=== PATIENT | female | born 1995 | race American Indian/Alaskan Native ===

== ENCOUNTER 2018-08-10 06:48 | Day surgery (SDC) | payer OTHER ==
[2018-08-10] MEDS ORDERED: LACTATED RINGERS 1,000 ML IV SCH (07:00)
--- NOTE | 2018-08-10 07:44 | Anesthesia Day of Surgery ---
Anesthesia Day of Surgery - Day of Surgery Patient Examined: Yes Patient H&P Reviewed: Yes Patient is NPO: Yes Beta Blockers: No (n/a) Cardiac Clearance: No (n/a) Pulmonary Clearance: No (n/a)
--- NOTE | 2018-08-10 07:44 | Anesthesia Consultation ---
Anesthesia Consult and Med Hx Date of service: 08/10/18 - Airway Anesthetic Teeth Evaluation: Good ROM Head & Neck: Adequate Mental/Hyoid Distance: Adequate Mallampati Class: Class I Intubation Access Assessment: Probably Good - Pulmonary Exam CTA: Yes - Cardiac Exam Cardiac Exam: RRR - Pre-Operative Health Status ASA Pre-Surgery Classification: ASA1 Proposed Anesthetic Plan: General - Pulmonary Hx Smoking: No Hx Respiratory Symptoms: No Hx Sleep Apnea: No - Cardiovascular System Hx Hypertension: No Hx Heart Attack/AMI: No Hx Cardia Arrhythmia: No (h/o palpitations; stress test 2 weeks ago, normal per patient) Hx Peripheral Vascular Disease: No - Central Nervous System Hx Neuromuscular Disorder: No Hx Psychiatric Problems: No - Gastrointestinal Hx Gastroesophageal Reflux Disease: No - Endocrine Hx Renal Disease: No Hx Liver Disease: No Hx Insulin Dependent Diabetes: No Hx Non-Insulin Dependent Diabetes: No - Hematic Hx Sickle Cell Disease: No - Other Systems Hx Alcohol Use: Yes (Occas) Hx Cancer: No - Additional Comments Anesthesia Medical History Comments: no previous surgeries, no FHAC
[2018-08-10] MEDS ORDERED: MONSEL'S TP ONE (08:49)
[2018-08-10] MEDS ORDERED: XYLOCAINE 1% 20 mL ONE (08:49)
[2018-08-10] MEDS ORDERED: LUGOL'S SOLUTION 5% TP ONE ×2 (08:50→09:37)
[2018-08-10] MEDS ORDERED: SILVER NITRATE TP ONE (08:50)
[2018-08-10] MEDS ORDERED: DIPRIVAN 10 MG/ML IV ONE (08:56)
[2018-08-10] MEDS ORDERED: DILAUDID ONE (08:56)
[2018-08-10] MEDS ORDERED: XYLOCAINE MPF 2% ONE (08:56)
[2018-08-10] MEDS ORDERED: VERSED ONE (09:00)
[2018-08-10] MEDS ORDERED: DILAUDID IV PRN (09:17)
[2018-08-10] MEDS ORDERED: NACL 0.9% IR ONE (09:37)
[2018-08-10] MEDS ORDERED: ZOFRAN ONE (09:57)
[2018-08-10] MEDS ORDERED: TORADOL ONE (10:09)
--- NOTE | 2018-08-10 10:38 | Operative Report ---
Operative Report Operative Report: DATE OF OPERATION: 08/10/18 PREOP DIAGNOSIS 1. SARAH III - Severe cervical dysplasia POSTOP DIAGNOSIS 1. SARAH III - Severe cervical dysplasia PROCEDURE: 1. Loop electro-excisional procedure (LEEP) 2. Endocervical curettage Surgeon: Dr. Whit Teague ANESTHESIA General FINDINGS 1. Hypopigmentation of cervical epithelium after staining with Lugol's staining. Specimens removed 1. Cervical biopsy 2. ECC- endocervical curetting IVF UOP 200ml clear EBL 25ml INDICATION: The patient is a 23yo that presents for scheduled LEEP due to SARAH III, severe cervical dysplasia. The risks including but not limited to bleeding, infection, injury to surrounding organs including bladder and bowel, shortened cervix which can result in cervical incompetence and the need for cerclage in future pregnancies were discussed. Benefits, and alternatives of the procedure were discussed in detail and patient expressed understanding, her questions were answered, and she gave informed consent. PROCEDURE: The patient was taken to the OR S3 in stable condition. She was placed in a dorsal supine position and adequateanesthesia was achieved. She wore SCDs for DVT prophylaxis. She was placed in the dorso-lithotomy position, prepped and draped in a sterile fashion and the timeout was done. A coated Grave's speculum was placed per vaginal. Lugol's solution was applied to the cervix. The transition zone and hypopigmented area of cervical epithelium were visible. The loop wire was passed through cervical tissue and cervical biopsy obtained. The specimen was sent to pathology. The base of the cervix was cauterized using monopoer cautery. Monsel's solution was applied to the cervical bed. Hemostasis was achieved. The speculum was removed from the vagina. All counts were correct 2. The patient tolerated the procedure well. She was awakened from the anesthesia and taken to the recovery room in stable condition.
[2018-08-10 12:53] VITALS: BP 121/75
--- NOTE | 2018-08-10 15:05 | Post Anesthesia Evaluation ---
- Post Anesthesia Evaluation Patient Participated: Yes Airway Patent: Yes Stable Respiratory Function: Yes Nausea/Vomiting: No Temp > 96.8F: Yes Pain Manageable: Yes Adequeate Hydration: Yes Anesthesia Complications: No
== END 2018-08-10 12:15 | disposition home or self-care (01) ==
LOC: OR 06:48
PROVIDERS: ATTEND Obstetrics & Gynecology
DX: D06.0 Carcinoma in situ of endocervix (principal); G43.909 Migraine, unspecified, not intractable, without status migrainosus; Z72.89 Other problems related to lifestyle; Z98.890 Other specified postprocedural states
CPT/HCPCS: 57522; 81025; 88305; 88307; 88341; 88342; J1170; J1885; J2250; J2405; J2704; J7120

== ENCOUNTER 2019-12-20 15:35 | Emergency (ER) | payer BC ==
[2019-12-20 15:49] VITALS: BP 111/71
--- NOTE | 2019-12-20 17:01 | Emergency Department Report ---
ED Shortness of Breath HPI - General Chief Complaint: Dyspnea/Respdistress Stated Complaint: CHEST TIGHT Time Seen by Provider: 12/20/19 16:56 Source: patient Mode of arrival: Wheelchair Limitations: Language Barrier - History of Present Illness Initial Comments: Patient is a 24-year-old female that presents emergency room with multiple complaints. Patient states that she is having shortness of breath and chest tightness for 2 days. Patient states that actually started 3 weeks ago. Patient states that her chest tightness and shortness of breath are intermittent. Patient states she went to [facility] and they told her that her symptoms were because of low potassium. Patient states that her primary care told her it was anxiety. Patient states she had a cover test on 12/16/2019 and the results were negative. Patient states she is having intermittent headache. Patient states she has diarrhea as well. Patient states that her diarrhea is typically 1 time in a 24-hour period and is related to her anxiety. Patient states that she wants to make sure that this is all related to her anxiety that is not being controlled by her psychiatrist. Patient states the chest pain is a 2 out of 10. Patient states it is in her entire chest. P atient states that her chest pain is better with relaxation techniques, rest. Patient states that her chest pain is worse with movement and palpation and stressing out. Patient states that her shortness of breath is better with rest and worse with exertion and anxiety. Patient denies fever and chills. Patient denies nausea vomiting. Patient states her primary care and psychiatrist gave her Zoloft and she has not started it because she is afraid of the possible side effects she read online. Patient denies recent travel. Patient denies recent international travel. Patient denies exposure to the novel coronavirus. Patient denies sick contacts. Patient denies fever and chills. Patient denies cough. Patient denies coming in contact with anybody with symptoms of the novel coronavirus. MD Complaint: shortness of breath, chest pain, anxiety -: Sudden - Related Data Previous Rx's Medication Instructions Recorded Last Taken Type Butalb/Acetaminophen/Caffeine 1 cap PO Q8HR PRN #10 cap 12/13/19 Unknown Rx [Fioricet 50-300-40 mg CAP] Hyoscyamine Subl [Levsin Sl 0.125 0.125 mg SL Q6HR PRN #7 tab 12/13/19 Unknown Rx TAB] Ibuprofen [Motrin 800 MG tab] 800 mg PO Q8HR PRN #30 tablet 12/20/19 Unknown Rx Ondansetron [Zofran ODT TAB] 4 mg PO Q6HR PRN #15 tab.rapdis 12/20/19 Unknown Rx Allergies Allergy/AdvReac Type Severity Reaction Status Date / Time No Known Allergies Allergy Verified 12/13/19 15:05 ED Review of Systems ROS: Stated complaint: CHEST TIGHT Other details as noted in HPI ED Past Medical Hx - Past Medical History Previous Medical History?: Yes Hx Hypertension: No Hx Heart Attack/AMI: No Hx Liver Disease: No Hx Renal Disease: No Hx Sickle Cell Disease: No Hx Headaches / Migraines: Yes (Migraines) Hx Psychiatric Treatment: Yes (anxiety) - Surgical History Past Surgical History?: Yes Additional Surgical History: CERVICAL - Social History Smoking Status: Never Smoker Substance Use Type: None - Medications Home Medications: Home Medications Medication Instructions Recorded Confirmed Last Taken Type Butalb/Acetaminophen/Caffeine 1 cap PO Q8HR PRN #10 cap 12/13/19 Unknown Rx [Fioricet 50-300-40 mg CAP] Hyoscyamine Subl [Levsin Sl 0.125 0.125 mg SL Q6HR PRN #7 tab 12/13/19 Unknown Rx TAB] Ibuprofen [Motrin 800 MG tab] 800 mg PO Q8HR PRN #30 tablet 12/20/19 Unknown Rx Ondansetron [Zofran ODT TAB] 4 mg PO Q6HR PRN #15 tab.rapdis 12/20/19 Unknown Rx ED Physical Exam - General Limitations: Language Barrier General appearance: alert, in no apparent distress - Head Head exam: Present: atraumatic, normocephalic - Eye Eye exam: Present: normal appearance - ENT ENT exam: Present: mucous membranes moist - Neck Neck exam: Present: normal inspection - Respiratory Respiratory exam: Present: normal lung sounds bilaterally, chest wall tenderness. Absent: respiratory distress, wheezes, rales, rhonchi, accessory muscle use, decreased breath sounds, prolonged expiratory - Cardiovascular Cardiovascular Exam: Present: regular rate, normal rhythm. Absent: systolic murmur, diastolic murmur, rubs, gallop - GI/Abdominal GI/Abdominal exam: Present: soft, normal bowel sounds. Absent: distended, tenderness - Extremities Exam Extremities exam: Present: normal inspection - Back Exam Back exam: Present: normal inspection - Neurological Exam Neurological exam: Present: alert, oriented X3 - Psychiatric Psychiatric exam: Present: anxious - Skin Skin exam: Present: warm, dry, intact, normal color. Absent: rash ED Course Vital Signs 12/20/19 12/20/19 15:48 20:06 Temperature 98.2 F Pulse Rate 106 H 84 Respiratory 20 16 Rate Blood Pressure 111/71 O2 Sat by Pulse 98 100 Oximetry - Reevaluation(s) Reevaluation #1: I discussed all results and clinical findings with patient. I discussed plan of care with patient. Patient agrees with plan of care. Patient is stable for discharge. Patient will be discharged home. Patient given discharge i nstructions. Patient voiced understanding of discharge instructions. 12/20/19 19:14 ED Medical Decision Making - Lab Data Result diagrams: 12/20/19 16:08 12/20/19 16:08 - EKG Data -: EKG Interpreted by Hi EKG shows normal: sinus rhythm, axis, intervals, QRS complexes, ST-T waves Rate: normal - Radiology Data Radiology results: report reviewed, image reviewed CHEST 2 VIEWS INDICATION / CLINICAL INFORMATION: chest tightness, SOB. COMPARISON: None available. FINDINGS: SUPPORT DEVICES: None. HEART / MEDIASTINUM: No significant abnormality. LUNGS / PLEURA: No significant pulmonary or pleural abnormality. No pneumothorax. ADDITIONAL FINDINGS: No significant additional findings. IMPRESSION: 1. Normal chest radiograph. - Medical Decision Making Patient is a 24-year-old female that presents emergency room with complaints of difficulty breathing, chest tightness, diarrhea. Patient's clinical findings are consistent with anxiety and stress reaction. Patient has been evaluated multiple times by her primary care, by [facility] and this ER and all of her work-up has been negative. Patient has had the symptoms for 2 to 4 weeks but this time around started 2 days ago. Patient states 4 days ago she was evaluated in the ER and everything was note negative except for low potassium. Patient had a negative COVID screen on 12/16/2019. Patient had a cardiac work-up here to include labs, EKG and chest x-ray. Patient's labs were unremarkable. Patient chest x-ray was negative for acute findings. Patient's EKG shows a sinus rhythm is completely normal. Patient is stable for discharge. I spent adequate time with the patient explaining her diagnosis and treatment use. I also explained to the patient the importance of follow-up with a psychiatrist and a primary care for further evaluation treatment. I encouraged the patient to take the Zoloft her primary care has prescribed for her. - Differential Diagnosis Anxiety, chest pain, shortness of breath, diarrhea, stress reaction Critical care attestation.: If time is entered above; I have spent that time in minutes in the direct care of this critically ill patient, excluding procedure time. ED Disposition Clinical Impression: SOB (shortness of breath), Anxiety, Stress reaction Diarrhea Qualifiers: Diarrhea type: unspecified type Qualified Code(s): R19.7 - Diarrhea, unspecified Chest pain Qualifiers: Chest pain type: unspecified Qualified Code(s): R07.9 - Chest pain, unspecified Disposition: TO HOME OR SELFCARE Is pt being admited?: No Does the pt Need Aspirin: No Condition: Stable Instructions: Chest Pain (ED), Costochondritis (ED), Stress (ED), Anxiety (ED) Additional Instructions: Patient to follow-up with primary care in 2 to 3 days. Patient to follow-up w [facility] in 2 to 3 days. Patient to rest. Patient to increase water. Patient to take Tylenol or ibuprofen as needed for pain. Patient to take meds as directed. Patient to return to the ER if condition worsens, changes or new symptoms arise. Prescriptions: Ibuprofen [Motrin 800 MG tab] 800 mg PO Q8HR PRN #30 tablet PRN Reason: pain Ondansetron [Zofran ODT TAB] 4 mg PO Q6HR PRN #15 tab.rapdis PRN Reason: Nausea And Vomiting Referrals: PRIMARY CAREMD [Primary Care Provider] - 2-3 Days [facility] [Outside] - 2-3 Days KATHIA QUINTANILLA MD [Staff Physician] - 2-3 Days Time of Disposition: 19:32
[2019-12-20 17:02] LABS: Basophils % (Auto) 0.6 % (0.0-1.8); Eosinophils % (Auto) 0.4 % (0.0-4.3); Hematocrit 39.9 % (30.3-42.9); Hemoglobin 13.3 gm/dl (10.1-14.3); Lymphocytes # (Auto) 1.1 K/mm3 (1.2-5.4); Lymphocytes % (Auto) 19.1 % (13.4-35.0); Mean Corpuscular HGB Conc 33 % (30-34); Mean Corpuscular Volume 85 fl (79-97); Monocytes # (Auto) 0.4 K/mm3 (0.0-0.8); Platelet Count 309 K/mm3 (140-440); Red Blood Count 4.68 M/mm3 (3.65-5.03); Red Cell Distribution Width 14.9 % (13.2-15.2)
[2019-12-20 17:25] LABS: Alanine Aminotransferase 9 units/L (7-56); Albumin 4.5 g/dL (3.9-5); Blood Urea Nitrogen 12 mg/dL (7-17); Calcium 10.2 mg/dL (8.4-10.2); Hemolysis Index 3
[2019-12-20 17:30] LABS: BUN/Creatinine Ratio 17
--- NOTE | 2019-12-20 17:40 | XRay Report ---
CHEST 2 VIEWS INDICATION / CLINICAL INFORMATION: chest tightness, SOB. COMPARISON: None available. FINDINGS: SUPPORT DEVICES: None. HEART / MEDIASTINUM: No significant abnormality. LUNGS / PLEURA: No significant pulmonary or pleural abnormality. No pneumothorax. ADDITIONAL FINDINGS: No significant additional findings. IMPRESSION: 1. Normal chest radiograph. Signer Name: Luis Alberto Azevedo MD Signed: 12/20/2019 5:36 PM Workstation Name: [id number]
== END 2019-12-20 20:00 | disposition home or self-care (01) ==
LOC: ED 15:35
DX: F43.9 Reaction to severe stress, unspecified (principal); F41.9 Anxiety disorder, unspecified; R06.02 Shortness of breath; R19.7 Diarrhea, unspecified; R07.89 Other chest pain; G43.909 Migraine, unspecified, not intractable, without status migrainosus; Z79.899 Other long term (current) drug therapy
CPT/HCPCS: 36415; 71046; 80053; 84703; 85025; 93005; 99283

== ENCOUNTER 2020-05-07 04:54 | Emergency (ER) | payer BC ==
--- NOTE | 2020-05-07 05:20 | Event Note ---
Date: 05/07/20 The patient was evaluated in the emergency department for symptoms described in the history of present illness. He/she was evaluated in the context of the global COVID-19 pandemic, which necessitated consideration that the patient might be at risk for infection with the virus that causes COVID-19. Institutional protocols and algorithms that pertain to the evaluation of patients at risk for COVID-19 are in a state of rapid change based on information released by regulatory bodies including the CDC and federal and state organizations. These policies and algorithms were followed during the patient's care in the emergency department. Please note that these policies, procedures and recommendations changed on a rapid basis. 24-year-old female who states that she is not , brought to the hospital by EMS for painless shortness of breath. EMS reports to myself that the patient was not wheezing, but was hypoxic in the field, saturating at 90%. Initially, patient appears to be saturating 100% on room air at rest. She has a history of anxiety, and asthma. Obtain x-ray of the chest, EKG, perform ambulatory trial, reassess.
--- NOTE | 2020-05-07 07:09 | Emergency Department Report ---
HPI - General Chief Complaint: Dyspnea/Respdistress Time Seen by Provider: 05/07/20 06:44 - HPI HPI: Room 19 The patient is a 24-year-old female present with a chief complaint of shortness of breath. Patient states for 5 months she has had occasional cough and intermittent shortness of breath. Patient states she has admit sensation of there is a knot in her throat and that her sinuses feel congested. Patient states she was seen by a bottom liquor attendant and a snuff packing machine operator 2 to 3 weeks ago and her work-up was negative. Patient denies history of fever or pleurisy. Patient states she is also noticed blood in her stool and on the tissue for the past w paimiut. Patient denies rectal pain. ED Past Medical Hx - Past Medical History Previous Medical History?: Yes Hx Headaches / Migraines: Yes (Migraines) Hx Psychiatric Treatment: Yes (anxiety) Hx Asthma: Yes Additional medical history: Panic attacks - Surgical History Additional Surgical History: LEEP - Family History Family history: no significant - Social History Smoking Status: Never Smoker Substance Use Type: None (Denies illicit drug use) - Medications Home Medications: Home Medications Medication Instructions Recorded Confirmed Last Taken Type Butalb/Acetaminophen/Caffeine 1 cap PO Q8HR PRN #10 cap 12/13/19 Unknown Rx [Fioricet 50-300-40 mg CAP] Hyoscyamine Subl [Levsin Sl 0.125 0.125 mg SL Q6HR PRN #7 tab 12/13/19 Unknown Rx TAB] Ibuprofen [Motrin 800 MG tab] 800 mg PO Q8HR PRN #30 tablet 12/20/19 Unknown Rx Ondansetron [Zofran ODT TAB] 4 mg PO Q6HR PRN #15 tab.rapdis 12/20/19 Unknown Rx Albuterol Mdi (or & Nicu Only) 2 puff IH QID PRN #8.5 gram 05/07/20 Unknown Rx [ProAir HFA Inhaler] Hydrocortisone [Anucort-HC SUPPOS] 25 mg RC BID #10 supp.rect 05/07/20 Unknown Rx hydrOXYzine PAMOATE [Vistaril] 50 mg PO Q6HR PRN #10 capsule 05/07/20 Unknown Rx ED Review of Systems ROS: Stated complaint: REINA Other details as noted in HPI Constitutional: denies: fever Eyes: denies: eye pain ENT: congestion Respiratory: cough, shortness of breath Cardiovascular: denies: chest pain Endocrine: no symptoms reported Gastrointestinal: denies: abdominal pain Genitourinary: denies: dysuria Musculoskeletal: denies: back pain Neurological: denies: headache Physical Exam - Physical Exam Vital Signs: Vital Signs 05/07/20 05/07/20 05/07/20 05:14 05:15 05:30 Temperature Pulse Rate 105 H 107 H 94 H Respiratory 17 17 15 Rate Blood Pressure 106/65 O2 Sat by Pulse 100 100 100 Oximetry 05/07/20 05/07/20 05/07/20 05:32 05:45 06:01 Temperature 98.1 F Pulse Rate 106 H 104 H 86 Respiratory 20 20 16 Rate Blood Pressure 107/53 106/65 112/56 O2 Sat by Pulse 100 100 100 Oximetry 05/07/20 05/07/20 05/07/20 06:15 06:30 06:45 Temperature Pulse Rate 99 H 86 81 Respiratory 13 7 L 15 Rate Blood Pressure 112/56 108/66 108/66 O2 Sat by Pulse 100 99 94 Oximetry Physical Exam: GENERAL: The patient is well-developed well-nourished female lying on stretcher not appearing to be in acute distress. [] HEENT: Normocephalic. Atraumatic. Extraocular motions are intact. Patient has moist mucous membranes. NECK: Supple. Trachea midline CHEST/LUNGS: Clear to auscultation. There is no respiratory distress noted. HEART/CARDIOVASCULAR: Regular. There is no tachycardia. There is no gallop rub or murmur. ABDOMEN: Abdomen is soft, nontender. Patient has normal bowel sounds. There is no abdominal distention. SKIN: There is no rash. There is no edema. There is no diaphoresis. NEURO: The patient is awake, alert, and oriented. The patient is cooperative. The patient has normal speech MUSCULOSKELETAL: There is no evidence of acute injury. ED Course Vital Signs 05/07/20 05/07/20 05/07/20 05:14 05:15 05:30 Temperature Pulse Rate 105 H 107 H 94 H Respiratory 17 17 15 Rate Blood Pressure 106/65 O2 Sat by Pulse 100 100 100 Oximetry 05/07/20 05/07/20 05/07/20 05:32 05:45 06:01 Temperature 98.1 F Pulse Rate 106 H 104 H 86 Respiratory 20 20 16 Rate Blood Pressure 107/53 106/65 112/56 O2 Sat by Pulse 100 100 100 Oximetry 05/07/20 05/07/20 05/07/20 06:15 06:30 06:45 Temperature Pulse Rate 99 H 86 81 Respiratory 13 7 L 15 Rate Blood Pressure 112/56 108/66 108/66 O2 Sat by Pulse 100 99 94 Oximetry ED Medical Decision Making - Lab Data Result diagrams: 05/07/20 07:44 05/07/20 07:44 Laboratory Tests 05/07/20 05/07/20 05/07/20 07:44 07:44 07:44 WBC 9.9 RBC 3.98 Hgb 12.2 Hct 33.3 MCV 84 MCH 31 MCHC 37 H RDW 13.4 Plt Count 288 Seg Neutrophils % Substation Electrician Supervisor PT 13.9 INR 1.09 APTT 30.8 D-Dimer 152.23 Sodium 138 Potassium 3.3 L Chloride 106.5 Carbon Dioxide 18 L Anion Gap 17 BUN 18 H Creatinine 0.7 Estimated GFR > 60 BUN/Creatinine Ratio 26 Glucose 113 H Calcium 9.4 Total Creatine Kinase 228 H CK-MB (CK-2) 1.9 CK-MB (CK-2) Rel Index 0.8 Troponin T < 0.010 TSH Free T4 HCG, Qual 05/07/20 05/07/20 07:44 07:44 WBC RBC Hgb Hct MCV MCH MCHC RDW Plt Count Seg Neutrophils % PT INR APTT D-Dimer Sodium Potassium Chloride Carbon Dioxide Anion Gap BUN Creatinine Estimated GFR BUN/Creatinine Ratio Glucose Calcium Total Creatine Kinase CK-MB (CK-2) CK-MB (CK-2) Rel Index Troponin T TSH 0.993 Free T4 1.33 HCG, Qual Negative - EKG Data -: EKG Interpreted by Me EKG shows normal: sinus rhythm Rate: normal - EKG Data When compared to previous EKG there are: previous EKG unavailable Interpretation: other (No ischemic changes seen) - Radiology Data Radiology results: report reviewed (Chest x-ray), image reviewed (Chest x-ray) interpreted by me: Chest x-ray-no focal infiltrates, no pneumothorax. No intrathoracic foreign bodies appreciated [facility] [address] [place] [address] XRay Report Signed Patient: JOHNNIE HERNANDEZ MR#: [id number] : 1995 Acct:[id number] Age/Sex: 24 / F ADM Date: 05/07/20 Loc: ED Attending Dr: Ordering Physician: CHAPO KINCAID MD Date of Service: 05/07/20 Procedure(s): XR chest 1V ap Accession Number(s): [id number] cc: CHAPO KINCAID MD Fluoro Time In Minutes: CHEST 1 VIEW 0602 INDICATION / CLINICAL INFORMATION: DYSPNEA COMPARISON: 12/20/2019 FINDINGS: SUPPORT DEVICES: None HEART / MEDIASTINUM: No significant abnormality. LUNGS / PLEURA: No significant pulmonary or pleural abnormality. No pneumothorax. ADDITIONAL FINDINGS: No significant additional findings. IMPRESSION: No significant acute abnormality Signer Name: Thomas Gill MD Signed: 05/07/2020 7:06 AM Workstation Name: [id number] Transcribed By: MOISÉS Dictated By: Thomas Gill MD Electronically Authenticated By: Thomas Gill MD Signed Date/Time: 05/07/20705 DD/ 4 TD/TT: - Differential Diagnosis Anxiety, PE, somatization Critical care attestation.: If time is entered above; I have spent that time in minutes in the direct care of this critically ill patient, excluding procedure time. ED Disposition Clinical Impression: Anxiety, Hypokalemia Disposition: DC-01 TO HOME OR SELFCARE Is pt being admited?: No Does the pt Need Aspirin: No Condition: Stable Additional Instructions: Return to the emergency department should you develop worsening symptoms, inability to tolerate food or liquids, high fever or any other concerns Prescriptions: Hydrocortisone [Anucort-HC SUPPOS] 25 mg RC BID #10 supp.rect Albuterol Mdi (or & Nicu Only) [ProAir HFA Inhaler] 2 puff IH QID PRN #8.5 gram PRN Reason: Shortness Of Breath hydrOXYzine PAMOATE [Vistaril] 50 mg PO Q6HR PRN #10 capsule PRN Reason: Anxiety Referrals: PRIMARY CARE, [Primary Care Provider] - 3-5 Days JONATAN JHA MD [Staff Physician] - 3-5 Days (Dr. Jha is a floating operator. Please follow-up with him for further evaluation) Time of Disposition: 10:05
[2020-05-07 08:10] LABS: Mean Corpuscular HGB Conc 37 % (30-34); Mean Corpuscular Volume 84 fl (79-97); Platelet Count 288 K/mm3 (140-440); Red Blood Count 3.98 M/mm3 (3.65-5.03); Red Cell Distribution Width 13.4 % (13.2-15.2)
[2020-05-07 08:19] LABS: INR 1.09 (0.87-1.13)
[2020-05-07 08:20] LABS: Partial Thromboplastin Time 30.8 Sec. (24.2-36.6)
[2020-05-07 08:38] LABS: Hematocrit 33.3 % (30.3-42.9); Hemoglobin 12.2 gm/dl (10.1-14.3)
[2020-05-07 09:20] LABS: Creatine Kinase MB 1.9 ng/mL (0.0-4.0)
[2020-05-07 09:22] LABS: Blood Urea Nitrogen 18 mg/dL (7-17); Calcium 9.4 mg/dL (8.4-10.2); Hemolysis Index 1
[2020-05-07 09:31] LABS: Free T4 (Free Thyroxine) 1.33 ng/dL (0.76-1.46)
[2020-05-07 09:33] LABS: BUN/Creatinine Ratio 26
[2020-05-07] MEDS ORDERED: POTASSIUM CHLORIDE ER 20 MEQ TAB PO ONE (09:44)
[2020-05-07 11:20] VITALS: BP 97/65
[2020-05-07 13:16] LABS: Total Cells Counted 100
[2020-05-07 13:17] LABS: Platelet Estimate Consistent w Auto; RBC Morphology Normal
== END 2020-05-07 11:21 | disposition home or self-care (01) ==
LOC: ED 04:54
DX: E87.6 Hypokalemia (principal); F41.9 Anxiety disorder, unspecified; J45.909 Unspecified asthma, uncomplicated; G43.909 Migraine, unspecified, not intractable, without status migrainosus; Z98.890 Other specified postprocedural states; Z79.1 Long term (current) use of non-steroidal anti-inflammatories (NSAID); Z79.899 Other long term (current) drug therapy
CPT/HCPCS: 36415; 71045; 80048; 82550; 82553; 84439; 84443; 84484; 84703; 85007; 85025; 85379; 85610; 85730; 93005

== ENCOUNTER 2020-06-16 08:29 | Outpatient (CLI) | payer BC ==
[2020-06-16 09:07] LABS: Hematocrit 34.8 % (30.3-42.9); Mean Corpuscular HGB Conc 35 % (30-34); Mean Corpuscular Volume 86 fl (79-97); Platelet Count 223 K/mm3 (140-440); Red Blood Count 4.05 M/mm3 (3.65-5.03); Red Cell Distribution Width 13.7 % (13.2-15.2)
[2020-06-16 09:27] LABS: Alanine Aminotransferase 8 units/L (7-56); BUN/Creatinine Ratio 16; Blood Urea Nitrogen 13 mg/dL (7-17); Calcium 8.7 mg/dL (8.4-10.2); Chol/HDL Ratio 2.37 %; HDL Cholesterol 59 mg/dL (40-59); Hemolysis Index 17; LDL Cholesterol,Direct 81 mg/dL (50-130)
[2020-06-16 10:04] LABS: ABG Base Excess -5.5 mmol/L (-2.0-3.0); ABG HCO3 15.6 mmol/L (20.0-26.0); ABG Methemoglobin 0.5 % (0.0-1.5); ABG Oxygen Saturation 98.7 % (95.0-99.0); ABG PCO2 20.2 mm Hg; ABG PH 7.507 pH Units (7.350-7.450); ABG PO2 126.1 mm Hg (80.0-90.0)
--- NOTE | 2020-06-16 10:29 | XRay Report ---
XR chest routine 2V INDICATION / CLINICAL INFORMATION: SOB. COMPARISON: 05/07/2020 FINDINGS: SUPPORT DEVICES: None. HEART /PULMONARY VASCULATURE: No significant abnormality. LUNGS / PLEURA: No significant pulmonary or pleural abnormality. No pneumothorax. ADDITIONAL FINDINGS: No significant additional findings. IMPRESSION: 1. No acute findings. Signer Name: Juventino Herzog MD Signed: 06/16/2020 10:25 AM Workstation Name: [id number]
--- NOTE | 2020-06-16 11:10 | Cat Scan Report ---
CTA CHEST WITH CONTRAST INDICATION : Shortness of breath. TECHNIQUE: Axial imaging performed through the chest, with contrast bolus timing set to maximize opa cification of the pulmonary arteries. Sagittal and coronal reformatted images. 3-plane MIP reformatte d images were obtained. All CT scans at this location are performed using CT dose reduction for ALAR A by means of automated exposure control. 100 mL of intravenous contrast administered. COMPARISON: None FINDINGS: Bolus: Contrast bolus timing is adequate. PTE: No filling defect is present to suggest PTE. Mediastinum: Heart and great vessels appear normal. No pathologic mediastinal adenopathy. Lungs: There is subtle patchy groundglass infiltration in the posterior right lower lobe. This appea rs inflammatory in nature. The remainder of the lungs are clear. No consolidation, nodule, pleural ef fusion or pneumothorax. Bones: No significant abnormality. Upper abdomen: Limited imaging of the upper abdomen shows nothing acute. IMPRESSION: No evidence for pulmonary embolus. Subtle patchy airspace disease in the right lower lobe which could represent early pneumonia. Viral i nfection is thought less likely but is not entirely excluded. Signer Name: Neto Wilson Jr, MD Signed: 06/16/2020 11:06 AM Workstation Name: [id number]
== END 2020-06-16 08:30 | disposition home or self-care (01) ==
LOC: CT 08:29
PROVIDERS: ATTEND Internal Medicine
DX: R91.8 Other nonspecific abnormal finding of lung field (principal); I26.99 Other pulmonary embolism without acute cor pulmonale; K21.9 Gastro-esophageal reflux disease without esophagitis; F41.9 Anxiety disorder, unspecified
CPT/HCPCS: 36415; 36600; 71046; 71275; 80053; 80061; 82785; 82803; 84436; 84443; 85027; 85379; Q9967

== ENCOUNTER 2020-07-12 21:22 | Observation (INO) | payer BC ==
[2020-07-12] MEDS ORDERED: IBUPROFEN 400 MG TAB PO ONE (23:24)
[2020-07-12] MEDS ORDERED: ACETAMINOPHEN 325 MG TAB PO STA (23:24)
[2020-07-12] MEDS ORDERED: dexAMETHasone 4 MG/ML VIAL IV ONE (23:31)
--- NOTE | 2020-07-12 23:31 | Emergency Department Report ---
ED General Adult HPI - General Chief complaint: Dyspnea/Respdistress Stated complaint: SOB PUI?: Yes Time Seen by Provider: 07/12/20 23:08 Source: patient, RN notes reviewed, old records reviewed Mode of arrival: Ambulatory Limitations: No Limitations - History of Present Illness Initial comments: The patient was evaluated in the emergency department for symptoms described in the history of present illness. He/she was evaluated in the context of the global COVID-19 pandemic, which necessitated consideration that the patient might be at risk for infection with the virus that causes COVID-19. Institutional protocols and algorithms that pertain to the evaluation of patients at risk for COVID-19 are in a state of rapid change based on information released by regulatory bodies including the CDC and federal and state organizations. These policies and algorithms were followed during the patient's care in the emergency department. Please note that these policies, procedures and recommendations changed on a rapid basis. During the entire history and physical examination, I have on complete personal protective equipment. During the history and physical examination, I am chaperoned by irrigation worker Mannie Luong This is a 25-year-old female. She states that she is not , has not delivered her given in the past 6 weeks, denies control tablets, oral contraceptive use, DVT and pulmonary embolism risk factors, and personal/family history of DVT, pulmonary embolism, and coronary artery disease. The patient presents to the ER with a complaint of intermittent shortness of breath and feeling like her throat is getting tight for about the past year. She denies headache, neck pain, chest pain, abdominal pain, exertional shortness of breath, vomiting, diaphoresis, hematemesis and bright red blood per rectum. She had an x-ray of her chest for similar symptoms by her primary whiteprinting machine operator earlier on this month, which was negative for acute findings, and a CT angiogram of her chest which was negative for acute findings, with the exception of possible right lower lobe infiltrate, and the patient reports that she was prescribed antibiotics by her whiteprinting machine operator. She has intermittent right-sided thoracic pressure, present for about a year. No loss of taste or smell. No diarrhea. No posterior leg pain or leg swelling. Does not take control tablets or oral contraceptives. Symptoms ap parently get worse when the patient gets "anxious." She indicates that the moment she feels "fine", but she was having a number of the aforementioned symptoms earlier on today while at work. Her symptoms do worsen with physical exertion -: Gradual, days(s), week(s) Location: chest (Right lateral thorax) Radiation: non-radiation Quality: aching Consistency: intermittent Improves with: rest Worsens with: movement - Related Data Previous Rx's Medication Instructions Recorded Last Taken Type Butalb/Acetaminophen/Caffeine 1 cap PO Q8HR PRN #10 cap 12/13/19 Unknown Rx [Fioricet 50-300-40 mg CAP] Hyoscyamine Subl [Levsin Sl 0.125 0.125 mg SL Q6HR PRN #7 tab 12/13/19 Unknown Rx TAB] Ibuprofen [Motrin 800 MG tab] 800 mg PO Q8HR PRN #30 tablet 12/20/19 Unknown Rx Ondansetron [Zofran ODT TAB] 4 mg PO Q6HR PRN #15 tab.rapdis 12/20/19 Unknown Rx Albuterol Mdi (or & Nicu Only) 2 puff IH QID PRN #8.5 gram 05/07/20 Unknown Rx [ProAir HFA Inhaler] Hydrocortisone [Anucort-HC SUPPOS] 25 mg RC BID #10 supp.rect 05/07/20 Unknown Rx hydrOXYzine PAMOATE [Vistaril] 50 mg PO Q6HR PRN #10 capsule 05/07/20 Unknown Rx Allergies Allergy/AdvReac Type Severity Reaction Status Date / Time No Known Allergies Allergy Verified 12/13/19 15:05 ED Review of Systems ROS: Stated complaint: SOB Other details as noted in HPI Constitutional: malaise, weakness. denies: fever Eyes: denies: eye discharge ENT: denies: epistaxis Respiratory: shortness of breath Cardiovascular: dyspnea on exertion. denies: palpitations, orthopnea, syncope Gastrointestinal: denies: abdominal pain, nausea, vomiting, hematemesis, melena, hematochezia Genitourinary: denies: dysuria Musculoskeletal: denies: myalgia Neurological: weakness Hematological/Lymphatic: denies: easy bleeding ED Past Medical Hx - Past Medical History Hx Hypertension: No Hx Heart Attack/AMI: No Hx Liver Disease: No Hx Renal Disease: No Hx Sickle Cell Disease: No Hx Headaches / Migraines: Yes (Migraines) Hx Psychiatric Treatment: Yes (anxiety) Hx Asthma: Yes Additional medical history: Panic attacks - Surgical History Past Surgical History?: Yes Additional Surgical History: LEEP - Social History Smoking Status: Never Smoker Substance Use Type: None - Medications Home Medications: Home Medications Medication Instructions Recorded Confirmed Last Taken Type Butalb/Acetaminophen/Caffeine 1 cap PO Q8HR PRN #10 cap 12/13/19 Unknown Rx [Fioricet 50-300-40 mg CAP] Hyoscyamine Subl [Levsin Sl 0.125 0.125 mg SL Q6HR PRN #7 tab 12/13/19 Unknown Rx TAB] Ibuprofen [Motrin 800 MG tab] 800 mg PO Q8HR PRN #30 tablet 12/20/19 Unknown Rx Ondansetron [Zofran ODT TAB] 4 mg PO Q6HR PRN #15 tab.rapdis 12/20/19 Unknown Rx Albuterol Mdi (or & Nicu Only) 2 puff IH QID PRN #8.5 gram 05/07/20 Unknown Rx [ProAir HFA Inhaler] Hydrocortisone [Anucort-HC SUPPOS] 25 mg RC BID #10 supp.rect 05/07/20 Unknown Rx hydrOXYzine PAMOATE [Vistaril] 50 mg PO Q6HR PRN #10 capsule 05/07/20 Unknown Rx ED Physical Exam - General Limitations: No Limitations General appearance: alert, in no apparent distress - Head Head exam: Present: atraumatic, normocephalic - Eye Eye exam: Present: normal appearance, EOMI. Absent: nystagmus - ENT ENT exam: Present: normal exam, normal orophraynx, mucous membranes moist, normal external ear exam - Neck Neck exam: Present: normal inspection, full ROM. Absent: tenderness, meningismus - Respiratory Respiratory exam: Present: normal lung sounds bilaterally. Absent: respiratory distress, wheezes, rales, rhonchi, stridor, chest wall tenderness - Cardiovascular Cardiovascular Exam: Present: regular rate, normal rhythm, normal heart sounds. Absent: bradycardia, tachycardia, irregular rhythm, systolic murmur, diastolic murmur, rubs, gallop - GI/Abdominal GI/Abdominal exam: Present: soft. Absent: distended, tenderness, guarding, rebound, rigid, pulsatile mass - Extremities Exam Extremities exam: Present: normal inspection, full ROM, other (2+ pulses noted in the bilateral upper and lower extremities. There is no palpable cord. negative Homans sign. Muscular compartments are soft. The pelvis is stable.). Absent: pedal edema, calf tenderness - Back Exam Back exam: Present: normal inspection, full ROM. Absent: tenderness, CVA tenderness (R), CVA tenderness (L), paraspinal tenderness, vertebral tenderness - Neurological Exam Neurological exam: Present: alert, oriented X3, normal gait, other (No facial droop. Tongue midline. Extraocular movements intact bilaterally. Facial sensation intact to light touch in V1, V2, V3 distribution bilaterally. 5 and a 5 strength in 4 extremities. Sensation intact to light touch in 4 extremities.). Absent: motor sensory deficit - Psychiatric Psychiatric exam: Present: normal affect, normal mood - Skin Skin exam: Present: warm, dry, intact, normal color. Absent: rash ED Course Vital Signs 07/12/20 22:12 Temperature 98.0 F Pulse Rate 79 Respiratory 18 Rate Blood Pressure 118/70 O2 Sat by Pulse 100 Oximetry - Reevaluation(s) Reevaluation #1: 07/12/20 23:35 Differential diagnosis, including but not limited to: Pneumonia, COVID-19 Assessment and plan: 25-year-old female with shortness of breath for about the past year, had a CT scan of the chest earlier on this month, which suggested right lower lobe pneumonia, no pulmonary embolism. She is not currently tachycardic, tachypneic . Denies pulmonary embolism and DVT risk factors, low risk by Wells criteria and is PERC negative., Patient was given trial of ambulation, became very symptomatic, and O2 desaturated to 88% on room air. Suspicious for COVID-19. Patient reports that she went back to work this week. She is not been vaccinated against Covid. This may be COVID-19. Patient meets criteria for admission/hospitalization secondary to acute hypoxic respiratory failure with ambulation. Place patient on isolation. Start steroids. Obtain appropriate laboratory studies, EKG, x-ray of the chest. The patient states that she is not . Placed courtesy consultation for infectious disease, and send biomarkers to restratify for cytokine storm. I discussed plan of care with patient for admission. She is amenable to this plan of care. Laboratory studies, EKG, chest x-ray are pending at this time. Reevaluation #2: 07/13/20 01:37 Hypokalemia will be addressed. Remainder of laboratory studies unremarkable. Patient resting comfortably. Hospital physician, Dr. Adolph Bonds to admit ED Medical Decision Making - Lab Data Result diagrams: 07/13/20 00:22 07/13/20 00:22 Vital Signs 07/12/20 22:12 Temperature 98.0 F Pulse Rate 79 Respiratory 18 Rate Blood Pressure 118/70 O2 Sat by Pulse 100 Oximetry Lab Results 07/13/20 07/13/20 07/13/20 Range/Units 00:22 00:22 00:22 WBC 5.7 (4.5-11.0) K/mm3 RBC 4.04 (3.65-5.03) M/mm3 Hgb 11.9 (10.1-14.3) gm/dl Hct 35.1 (30.3-42.9) % MCV 87 (79-97) fl MCH 30 (28-32) pg MCHC 34 (30-34) % RDW 14.3 (13.2-15.2) % Plt Count 260 (140-440) K/mm3 Lymph % (Auto) 34.2 (13.4-35.0) % [place] % (Auto) 6.5 (0.0-7.3) % Eos % (Auto) 1.8 (0.0-4.3) % Baso % (Auto) 0.7 (0.0-1.8) % Lymph # (Auto) 1.9 (1.2-5.4) K/mm3 [place] # (Auto) 0.4 (0.0-0.8) K/mm3 Eos # (Auto) 0.1 (0.0-0.4) K/mm3 Baso # (Auto) 0.0 (0.0-0.1) K/mm3 Seg Neutrophils % 56.8 (40.0-70.0) % Seg Neutrophils # 3.2 (1.8-7.7) K/mm3 PT 13.8 (12.2-14.9) Sec. INR 1.07 (0.87-1.13) D-Dimer 135.00 (0-234) ng/mlDDU Sodium 139 (137-145) mmol/L Potassium 3.2 L (3.6-5.0) mmol/L Chloride 105.9 (98-107) mmol/L Carbon Dioxide 20 L (22-30) mmol/L Anion Gap 16 mmol/L BUN 12 (7-17) mg/dL Glucose 101 H (65-100) mg/dL Lactic Acid (0.7-2.0) mmol/L Calcium 8.9 (8.4-10.2) mg/dL Magnesium 1.90 (1.7-2.3) mg/dL Total Bilirubin 0.40 (0.1-1.2) mg/dL AST 14 (5-40) units/L ALT 11 (7-56) units/L Alkaline Phosphatase 57 (35-129) units/L Lactate Dehydrogenase 158 (91-180) units/L Total Creatine Kinase 100 (30-135) units/L Troponin T (0.00-0.029) ng/mL C-Reactive Protein 0.10 (0.00-1.30) mg/dL Total Protein 7.0 (6.3-8.2) g/dL Albumin 4.3 (3.9-5) g/dL Albumin/Globulin Ratio 1.6 % 07/13/20 07/13/20 Range/Units 00:22 00:22 WBC (4.5-11.0) K/mm3 RBC (3.65-5.03) M/mm3 Hgb (10.1-14.3) gm/dl Hct (30.3-42.9) % MCV (79-97) fl MCH (28-32) pg MCHC (30-34) % RDW (13.2-15.2) % Plt Count (140-440) K/mm3 Lymph % (Auto) (13.4-35.0) % [place] % (Auto) (0.0-7.3) % Eos % (Auto) (0.0-4.3) % Baso % (Auto) (0.0-1.8) % Lymph # (Auto) (1.2-5.4) K/mm3 [place] # (Auto) (0.0-0.8) K/mm3 Eos # (Auto) (0.0-0.4) K/mm3 Baso # (Auto) (0.0-0.1) K/mm3 Seg Neutrophils % (40.0-70.0) % Seg Neutrophils # (1.8-7.7) K/mm3 PT (12.2-14.9) Sec. INR (0.87-1.13) D-Dimer (0-234) ng/mlDDU Sodium (137-145) mmol/L Potassium (3.6-5.0) mmol/L Chloride (98-107) mmol/L Carbon Dioxide (22-30) mmol/L Anion Gap mmol/L BUN (7-17) mg/dL Glucose (65-100) mg/dL Lactic Acid 1.40 (0.7-2.0) mmol/L Calcium (8.4-10.2) mg/dL Magnesium (1.7-2.3) mg/dL Total Bilirubin (0.1-1.2) mg/dL AST (5-40) units/L ALT (7-56) units/L Alkaline Phosphatase (35-129) units/L Lactate Dehydrogenase (91-180) units/L Total Creatine Kinase (30-135) units/L Troponin T < 0.010 (0.00-0.029) ng/mL C-Reactive Protein (0.00-1.30) mg/dL Total Protein (6.3-8.2) g/dL Albumin (3.9-5) g/dL Albumin/Globulin Ratio % Lab Results 07/13/20 07/13/20 07/13/20 Range/Units 00:22 00:22 00:22 WBC 5.7 (4.5-11.0) K/mm3 RBC 4.04 (3.65-5.03) M/mm3 Hgb 11.9 (10.1-14.3) gm/dl Hct 35.1 (30.3-42.9) % MCV 87 (79-97) fl MCH 30 (28-32) pg MCHC 34 (30-34) % RDW 14.3 (13.2-15.2) % Plt Count 260 (140-440) K/mm3 Lymph % (Auto) 34.2 (13.4-35.0) % [place] % (Auto) 6.5 (0.0-7.3) % Eos % (Auto) 1.8 (0.0-4.3) % Baso % (Auto) 0.7 (0.0-1.8) % Lymph # (Auto) 1.9 (1.2-5.4) K/mm3 [place] # (Auto) 0.4 (0.0-0.8) K/mm3 Eos # (Auto) 0.1 (0.0-0.4) K/mm3 Baso # (Auto) 0.0 (0.0-0.1) K/mm3 Seg Neutrophils % 56.8 (40.0-70.0) % Seg Neutrophils # 3.2 (1.8-7.7) K/mm3 PT 13.8 (12.2-14.9) Sec. INR 1.07 (0.87-1.13) D-Dimer 135.00 (0-234) ng/mlDDU Sodium 139 (137-145) mmol/L Potassium 3.2 L (3.6-5.0) mmol/L Chloride 105.9 (98-107) mmol/L Carbon Dioxide 20 L (22-30) mmol/L Anion Gap 16 mmol/L BUN 12 (7-17) mg/dL Glucose 101 H (65-100) mg/dL Lactic Acid (0.7-2.0) mmol/L Calcium 8.9 (8.4-10.2) mg/dL Magnesium 1.90 (1.7-2.3) mg/dL Total Bilirubin 0.40 (0.1-1.2) mg/dL AST 14 (5-40) units/L ALT 11 (7-56) units/L Alkaline Phosphatase 57 (35-129) units/L Lactate Dehydrogenase 158 (91-180) units/L Total Creatine Kinase 100 (30-135) units/L Troponin T (0.00-0.029) ng/mL C-Reactive Protein 0.10 (0.00-1.30) mg/dL Total Protein 7.0 (6.3-8.2) g/dL Albumin 4.3 (3.9-5) g/dL Albumin/Globulin Ratio 1.6 % 07/13/20 07/13/20 Range/Units 00:22 00:22 WBC (4.5-11.0) K/mm3 RBC (3.65-5.03) M/mm3 Hgb (10.1-14.3) gm/dl Hct (30.3-42.9) % MCV (79-97) fl MCH (28-32) pg MCHC (30-34) % RDW (13.2-15.2) % Plt Count (140-440) K/mm3 Lymph % (Auto) (13.4-35.0) % [place] % (Auto) (0.0-7.3) % Eos % (Auto) (0.0-4.3) % Baso % (Auto) (0.0-1.8) % Lymph # (Auto) (1.2-5.4) K/mm3 [place] # (Auto) (0.0-0.8) K/mm3 Eos # (Auto) (0.0-0.4) K/mm3 Baso # (Auto) (0.0-0.1) K/mm3 Seg Neutrophils % (40.0-70.0) % Seg Neutrophils # (1.8-7.7) K/mm3 PT (12.2-14.9) Sec. INR (0.87-1.13) D-Dimer (0-234) ng/mlDDU Sodium (137-145) mmol/L Potassium (3.6-5.0) mmol/L Chloride (98-107) mmol/L Carbon Dioxide (22-30) mmol/L Anion Gap mmol/L BUN (7-17) mg/dL Glucose (65-100) mg/dL Lactic Acid 1.40 (0.7-2.0) mmol/L Calcium (8.4-10.2) mg/dL Magnesium (1.7-2.3) mg/dL Total Bilirubin (0.1-1.2) mg/dL AST (5-40) units/L ALT (7-56) units/L Alkaline Phosphatase (35-129) units/L Lactate Dehydrogenase (91-180) units/L Total Creatine Kinase (30-135) units/L Troponin T < 0.010 (0.00-0.029) ng/mL C-Reactive Protein (0.00-1.30) mg/dL Total Protein (6.3-8.2) g/dL Albumin (3.9-5) g/dL Albumin/Globulin Ratio % - EKG Data -: EKG Interpreted by Nd EKG shows normal: sinus rhythm Rate: normal - EKG Data Interpretation: nonspecific ST-T wave rosalino (T wave inversions V2 and V3 appear to be more prominent than when compared to prior EKG) 03/01/21 00:50 Sinus rhythm, 67 bpm. Normal axis, QTC 430 ms. T wave inversions V2, V3. Likely juvenile T wave inversions. Abnormal EKG. Not a STEMI. - Radiology Data Radiology results: pending, report reviewed, image reviewed CTA CHEST WITH CONTRAST INDICATION : Shortness of breath. TECHNIQUE: Axial imaging performed through the chest, with contrast bolus timing set to maximize opacification of the pulmonary arteries. Sagittal and coronal reformatted images. 3-plane MIP reformatted images were obtained. All CT scans at this location are performed using CT dose reduction for ALARA by means of automated exposure control. 100 mL of intravenous contrast administered. COMPARISON: None FINDINGS: Bolus: Contrast bolus timing is adequate. PTE: No filling defect is present to suggest PTE. Mediastinum: Heart and great vessels appear normal. No pathologic mediastinal adenopathy. Lungs: There is subtle patchy groundglass infiltration in the posterior right lower lobe. This appears inflammatory in nature. The remainder of the lungs are clear. No consolidation, nodule, pleural effusion or pneumothorax. Bones: No significant abnormality. Upper abdomen: Limited imaging of the upper abdomen shows nothing acute. IMP RESSION: No evidence for pulmonary embolus. Subtle patchy airspace disease in the right lower lobe which could represent early pneumonia. Viral infection is thought less likely but is not entirely excluded. Signer Name: Neto Wilson Jr, MD Signed: 06/16/2020 10:06 AM Workstation Name: [id number] XR chest routine 2V INDICATION / CLINICAL INFORMATION: SOB. COMPARISON: 05/07/2020 FINDINGS: SUPPORT DEVICES: None. HEART /PULMONARY VASCULATURE: No significant abnormality. LUNGS / PLEURA: No significant pulmonary or pleural abnormality. No pneumothorax. ADDITIONAL FINDINGS: No significant additional findings. IMPRESSION: 1. No acute findings. Signer Name: Juvenitno Herzog MD Signed: 06/16/2020 9:25 AM Workstation Name: [id number] X-ray of the chest from July 12July 13 negative for acute findings. Critical care attestation.: If time is entered above; I have spent that time in minutes in the direct care of this critically ill patient, excluding procedure time. ED Disposition Clinical Impression: Hypoxia, Shortness of breath, Suspected 2019 novel coronavirus infection, Hypokalemia Disposition: DC-09 OP ADMIT IP TO THIS HOSP Is pt being admited?: Yes Does the pt Need Aspirin: No Condition: Good Referrals: ISAMAR COLLINS [Primary Care Provider] - 3-5 Days
--- NOTE | 2020-07-13 00:13 | XRay Report ---
CHEST 1 VIEW 07/12/2020 11:00 PM INDICATION / CLINICAL INFORMATION: Dyspnea, suspect covid. COMPARISON: 06/16/2020 FINDINGS: SUPPORT DEVICES: None. HEART / MEDIASTINUM: No significant abnormality. LUNGS / PLEURA: No significant pulmonary or pleural abnormality. No pneumothorax. ADDITIONAL FINDINGS: No significant additional findings. IMPRESSION: 1. No acute findings. Signer Name: Jaylen Cobb MD Signed: 07/13/2020 12:08 AM Workstation Name: [email or web address]
[2020-07-13] MEDS: D5W/0.45% NACL 1,000 ML IV SCH ×3 (00:39→20:10)
[2020-07-13 00:56] LABS: INR 1.07 (0.87-1.13)
[2020-07-13 01:20] LABS: Basophils % (Auto) 0.7 % (0.0-1.8); Eosinophils # (Auto) 0.1 K/mm3 (0.0-0.4); Eosinophils % (Auto) 1.8 % (0.0-4.3); Hematocrit 35.1 % (30.3-42.9); Hemoglobin 11.9 gm/dl (10.1-14.3); Lymphocytes # (Auto) 1.9 K/mm3 (1.2-5.4); Lymphocytes % (Auto) 34.2 % (13.4-35.0); Mean Corpuscular HGB Conc 34 % (30-34); Mean Corpuscular Volume 87 fl (79-97); Monocytes # (Auto) 0.4 K/mm3 (0.0-0.8); Monocytes % (Auto) 6.5 % (0.0-7.3); Platelet Count 260 K/mm3 (140-440); Red Blood Count 4.04 M/mm3 (3.65-5.03); Red Cell Distribution Width 14.3 % (13.2-15.2)
[2020-07-13 01:34] LABS: Alanine Aminotransferase 11 units/L (7-56); Albumin 4.3 g/dL (3.9-5); Blood Urea Nitrogen 12 mg/dL (7-17); Calcium 8.9 mg/dL (8.4-10.2); Hemolysis Index 5
[2020-07-13] MEDS ORDERED: POTASSIUM CHLORIDE ER 20 MEQ TAB PO ONE (01:36)
[2020-07-13 01:44] LABS: BUN/Creatinine Ratio 17
[2020-07-13] MEDS: POTASSIUM CHLORIDE 10 MEQ 10 MEQ/100 ML BAG IV SCH ×2 (01:54→05:30)
[2020-07-13 02:21] LABS: HCG,Quantitative < 2 mIU/mL (0-4)
[2020-07-13] MEDS ORDERED: ACETAMINOPHEN 325 MG TAB PO PRN (03:10)
[2020-07-13] MEDS ORDERED: ONDANSETRON 4 MG/2 ML INJ IV PRN (03:10)
[2020-07-13] MEDS ORDERED: ALBUTEROL 2.5 MG/3 ML NEBU IH PRN (03:20)
[2020-07-13] MEDS ORDERED: BUTALB PO PRN (03:27)
[2020-07-13] MEDS ORDERED: HYOSCYAMINE SUBL 0.125 MG TAB SL PRN (03:27)
[2020-07-13] MEDS ORDERED: ACETAMINOPHEN PO PRN (03:27)
[2020-07-13] MEDS ORDERED: [UNRECOGNIZED DRUG - OTHER] PO PRN (03:27)
[2020-07-13] MEDS ORDERED: CAFFEINE PO PRN (03:27)
[2020-07-13] MEDS ORDERED: BUTALB/ACETAMINOPHEN/CAFFEINE TAB PO PRN (03:37)
[2020-07-13 05:45] LABS: BUN/Creatinine Ratio 14; Blood Urea Nitrogen 11 mg/dL (7-17); Calcium 8.6 mg/dL (8.4-10.2); Hemolysis Index 3
--- NOTE | 2020-07-13 06:29 | History and Physical Report ---
History of Present Illness Date of examination: 07/13/20 Date of admission: 07/13/20 01:38 Chief complaint: Chief complaint is shortness of breath, other complaint include throat tightness History of present illness: History of presenting illness, patient is a 25-year-old female who has been having intermittent shortness of breath with throat discomfort going on for almost a year, patient was seen by the probation worker within the first few days of the month of June for the same reason and she had x-ray and CT angiogram of the chest done that showed possible infiltrates on the right side. There was no history of fever or chills, patient said that this has been going on and has been investigated by different doctors and she is about to have pulmonary fun ction test done. Patient admitted to having some throat discomfort from time to time, there is no history of dysphagia, nausea or vomiting. Past History Past Medical History: migraines (ASTHMA, PANIC ATTACKS), other (ANXIETY,) Past Surgical History: Other (LEEP SURGERY) Social history: no significant social history Family history: no significant family history Medications and Allergies Allergies Allergy/AdvReac Type Severity Reaction Status Date / Time No Known Allergies Allergy Verified 12/13/19 15:05 Home Medications Medication Instructions Recorded Confirmed Last Taken Type Butalb/Acetaminophen/Caffeine 1 cap PO Q8HR PRN #10 cap 12/13/19 07/13/20 Unknown Rx [Fioricet 50-300-40 mg CAP] Hyoscyamine Subl [Levsin Sl 0.125 0.125 mg SL Q6HR PRN #7 tab 12/13/19 07/13/20 Unknown Rx TAB] Ibuprofen [Motrin 800 MG tab] 800 mg PO Q8HR PRN #30 tablet 12/20/19 07/13/20 Unknown Rx Ondansetron [Zofran ODT TAB] 4 mg PO Q6HR PRN #15 tab.rapdis 12/20/19 07/13/20 Unknown Rx Albuterol Mdi (or & Nicu Only) 2 puff IH QID PRN #8.5 gram 05/07/20 07/13/20 Unknown Rx [ProAir HFA Inhaler] Hydrocortisone [Anucort-HC SUPPOS] 25 mg RC BID #10 supp.rect 05/07/20 07/13/20 Unknown Rx hydrOXYzine PAMOATE [Vistaril] 50 mg PO Q6HR PRN #10 capsule 05/07/20 07/13/20 Unknown Rx busPIRone [Buspar] 10 mg PO BID 07/13/20 07/13/20 Unknown History Active Meds: Active Medications Acetaminophen (Acetaminophen 325 Mg Tab) 650 mg PO Q4H PRN PRN Reason: Fever >101 Acetaminophen/Butalbital/Caffeine (Butalb/Acetaminophen/Caffeine Tab) 1 tab PO Q8H PRN PRN Reason: Headache Albuterol (Albuterol 2.5 Mg/3 Ml Nebu) 2.5 mg IH Q4HRT PRN PRN Reason: Shortness Of Breath Buspirone HCl (Buspirone 10 Mg Tab) 10 mg PO BID [facility] Dexamethasone (Dexamethasone 4 Mg/Ml Vial) 6 mg IV DAILY [facility] Hydroxyzine Pamoate (Hydroxyzine Pamoate 50 Mg Cap) 50 mg PO Q6HR PRN PRN Reason: Anxiety Hyoscyamine (Hyoscyamine Subl 0.125 Mg Tab) 0.125 mg SL Q6HR PRN PRN Reason: abdominal cramping/diarrhea Dextrose/Sodium Chloride (D5/0.45ns) 1,000 mls @ 125 mls/hr IV DIRECT [facility] Last Admin: 07/13/20 00:39 Dose: 125 mls/hr Documented by: Ondansetron HCl (Ondansetron 4 Mg/2 Ml Inj) 4 mg IV Q8H PRN PRN Reason: Nausea And Vomiting Review of Systems Constitutional: no fever, no chills, no sweats, no night sweats, no fatigue, no weakness, no malaise Eyes: bilateral: other (NO BILATERAL EYE SYMPTOMS) Ears, nose, mouth and throat: no ear pain Breasts: deferred Cardiovascular: chest pain, shortness of breath Respiratory: shortness of breath, no cough, no hemoptysis Gastrointestinal: no abdominal pain, no nausea, no vomiting, no diarrhea, no constipation, no change in bowel habits, no hematemesis, no melena, no hematochezia Genitourinary Female: no flank pain, no dysuria, no Menstruation: no postmenopausal Rectal: no pain Musculoskeletal: no neck stiffness, no neck pain, no myalgias Integumentary: no rash, no pruritis, no redness Neurological: no weakness, no numbness, no tingling, no seizures, no syncope, no vertigo, no headaches Psychiatric: no anxiety, no insomnia, no depression Endocrine: no polydipsia, no polyuria, no nocturia, no excessive sweating Hematologic/Lymphatic: no easy bruising Exam - Constitutional Vitals: Temp Pulse Resp BP Pulse Ox 97.6 F 60 16 112/73 100 07/13/20 02:53 07/13/20 02:53 07/13/20 02:53 07/13/20 02:53 07/13/20 02:53 General appearance: Present: no acute distress - EENT Eyes: Present: PERRL, EOM intact ENT: hearing intact, clear oral mucosa, dentition normal - Neck Neck: Present: supple, normal ROM - Respiratory Respiratory effort: normal - Cardiovascular Rhythm: regular Heart Sounds: Present: S1 & S2. Absent: gallop, systolic murmur, diastolic murmur - Extremities Extremities: no ischemia, No edema Peripheral Pulses: within normal limits - Abdominal General gastrointestinal: Present: soft, non-tender, non-distended, distended. Absent: tender, rigid Female genitourinary: Present: deferred - Rectal Rectal Exam: deferred - Integumentary Integumentary: Present: clear, warm, dry - Musculoskeletal Musculoskeletal: strength equal bilaterally - Psychiatric Psychiatric: appropriate mood/affect HEART Score - HEART Score Risk factors: No known risk factors Troponin: Troponin T < 0.010 ng/mL (0.00-0.029) 07/13/20 00:22 Troponin: < normal limit Results - Labs CBC & Chem 7: 07/13/20 00:22 07/13/20 04:36 Labs: Laboratory Last Values WBC 5.7 K/mm3 (4.5-11.0) 07/13/20 00:22 RBC 4.04 M/mm3 (3.65-5.03) 07/13/20 00:22 Hgb 11.9 gm/dl (10.1-14.3) 07/13/20 00:22 Hct 35.1 % (30.3-42.9) 07/13/20 00:22 MCV 87 fl (79-97) 07/13/20 00:22 MCH 30 pg (28-32) 07/13/20 00:22 MCHC 34 % (30-34) 07/13/20 00:22 RDW 14.3 % (13.2-15.2) 07/13/20 00:22 Plt Count 260 K/mm3 (140-440) 07/13/20 00:22 Lymph % (Auto) 34.2 % (13.4-35.0) 07/13/20 00:22 [place] % (Auto) 6.5 % (0.0-7.3) 07/13/20 00:22 Eos % (Auto) 1.8 % (0.0-4.3) 07/13/20 00:22 Baso % (Auto) 0.7 % (0.0-1.8) 07/13/20 00:22 Lymph # (Auto) 1.9 K/mm3 (1.2-5.4) 07/13/20 00:22 [place] # (Auto) 0.4 K/mm3 (0.0-0.8) 07/13/20 00:22 Eos # (Auto) 0.1 K/mm3 (0.0-0.4) 07/13/20 00:22 Baso # (Auto) 0.0 K/mm3 (0.0-0.1) 07/13/20 00:22 Seg Neutrophils % 56.8 % (40.0-70.0) 07/13/20 00: Seg Neutrophils # 3.2 K/mm3 (1.8-7.7) 07/13/20 00:22 PT 13.8 Sec. (12.2-14.9) 07/13/20 00:22 INR 1.07 (0.87-1.13) 07/13/20 00:22 D-Dimer 135.00 ng/mlDDU (0-234) 07/13/20 00:22 Sodium 139 mmol/L (137-145) 07/13/20 04:36 Potassium 3.5 mmol/L (3.6-5.0) L 07/13/20 04:36 Chloride 106.5 mmol/L (98-107) 07/13/20 04:36 Carbon Dioxide 18 mmol/L (22-30) L 07/13/20 04:36 Anion Gap 18 mmol/L 07/13/20 04:36 BUN 11 mg/dL (7-17) 07/13/20 04:36 Creatinine 0.8 mg/dL (0.6-1.2) 07/13/20 04:36 Estimated GFR > 60 ml/min 07/13/20 04:36 BUN/Creatinine Ratio 14 % 07/13/20 04:36 Glucose 136 mg/dL (65-100) H 07/13/20 04:36 Lactic Acid 1.40 mmol/L (0.7-2.0) 07/13/20 00:22 Calcium 8.6 mg/dL (8.4-10.2) 07/13/20 04:36 Magnesium 1.90 mg/dL (1.7-2.3) 07/13/20 00:22 Ferritin 27.1 ng/mL (10.0-200.0) 07/13/20 00:22 Total Bilirubin 0.40 mg/dL (0.1-1.2) 07/13/20 00:22 AST 14 units/L (5-40) 07/13/20 00:22 ALT 11 units/L (7-56) 07/13/20 00:22 Alkaline Phosphatase 57 units/L (35-129) 07/13/20 00:22 Lactate Dehydrogenase 158 units/L (91-180) 07/13/20 00:22 Total Creatine Kinase 100 units/L (30-135) 07/13/20 00:22 Troponin T < 0.010 ng/mL (0.00-0.029) 07/13/20 00:22 C-Reactive Protein 0.10 mg/dL (0.00-1.30) 07/13/20 00:22 Total Protein 7.0 g/dL (6.3-8.2) 07/13/20 00:22 Albumin 4.3 g/dL (3.9-5) 07/13/20 00:22 Albumin/Globulin Ratio 1.6 % 07/13/20 00:22 HCG, Quant < 2 mIU/mL (0-4) 07/13/20 00:22 Prieto/IV: Voiding Method Toilet Assessment and Plan - Patient Problems (1) Shortness of breath Current Visit: Yes Status: Acute Plan to address problem: 1. ALBUTEROL NEBULIUZER PRN SHORTNESS OF BREATH (2) Suspected 2019 novel coronavirus infection Current Visit: Yes Status: Acute Plan to address problem: 1. COVID- 19 PCR TEST 2. CONTACT/DROPLET ISOLATION 3. INFECTIOUS DISEASE CONSULT (3) Hypokalemia Current Visit: Yes Status: Acute Plan to address problem: 1. PO KCL REPLACEMENT 2. BMP LEVEL MONITOR
[2020-07-13] MEDS ORDERED: POTASSIUM CHLORIDE ER 20 MEQ TAB PO NR (07:30)
[2020-07-13] MEDS: dexAMETHasone 4 MG/ML VIAL IV SCH (09:23)
[2020-07-13] MEDS: busPIRone 10 MG TAB PO SCH ×2 (09:23→21:46)
--- NOTE | 2020-07-13 12:48 | Consultation ---
History of Present Illness - Reason for Consult Consult date: 07/13/20 COVID-19 PUI Requesting physician: CHAPO KINCAID - History of Present Illness The patient is a 25-year-old female with anxiety, panic attacks, asthma was admitted to the hospital with shortness of breath and throat discomfort. Upon evaluation in the ER, afebrile, no hypoxia noted on admission however it seems she was placed on nasal cannula. Labs showed normal WBC, normal D-dimer, procalcitonin 0.05, ferritin 27.1, CRP 0.1. ID was consulted due to concern for COVID-19. Test is pending. Review of Systems: reviewed in the chart, unable to obtain, minimize risk of transmission Past History Past Medical History: migraines (ASTHMA, PANIC ATTACKS), other (ANXIETY,) Past Surgical History: Other (LEEP SURGERY) Social history: no significant social history Family history: no significant family history Medications and Allergies Allergies Allergy/AdvReac Type Severity Reaction Status Date / Time No Known Allergies Allergy Verified 12/13/19 15:05 Home Medications Medication Instructions Recorded Confirmed Last Taken Type Butalb/Acetaminophen/Caffeine 1 cap PO Q8HR PRN #10 cap 12/13/19 07/13/20 Unknown Rx [Fioricet 50-300-40 mg CAP] Hyoscyamine Subl [Levsin Sl 0.125 0.125 mg SL Q6HR PRN #7 tab 12/13/19 07/13/20 Unknown Rx TAB] Ibuprofen [Motrin 800 MG tab] 800 mg PO Q8HR PRN #30 tablet 12/20/19 07/13/20 Unknown Rx Ondansetron [Zofran ODT TAB] 4 mg PO Q6HR PRN #15 tab.rapdis 12/20/19 07/13/20 Unknown Rx Albuterol Mdi (or & Nicu Only) 2 puff IH QID PRN #8.5 gram 05/07/20 07/13/20 Unknown Rx [ProAir HFA Inhaler] Hydrocortisone [Anucort-HC SUPPOS] 25 mg RC BID #10 supp.rect 05/07/20 07/13/20 Unknown Rx hydrOXYzine PAMOATE [Vistaril] 50 mg PO Q6HR PRN #10 capsule 05/07/20 07/13/20 Unknown Rx busPIRone [Buspar] 10 mg PO BID 07/13/20 07/13/20 Unknown History Active Meds: Active Medications Acetaminophen (Acetaminophen 325 Mg Tab) 650 mg PO Q4H PRN PRN Reason: Fever >101 Acetaminophen/Butalbital/Caffeine (Butalb/Acetaminophen/Caffeine Tab) 1 tab PO Q8H PRN PRN Reason: Headache Albuterol (Albuterol 2.5 Mg/3 Ml Nebu) 2.5 mg IH Q4HRT PRN PRN Reason: Shortness Of Breath Buspirone HCl (Buspirone 10 Mg Tab) 10 mg PO BID [facility] Last Admin: 07/13/20 09:23 Dose: 10 mg Documented by: Dexamethasone (Dexamethasone 4 Mg/Ml Vial) 6 mg IV DAILY [facility] Stop: 07/22/20 10:01 Last Admin: 07/13/20 09:23 Dose: 6 mg Documented by: Hydroxyzine Pamoate (Hydroxyzine Pamoate 50 Mg Cap) 50 mg PO Q6HR PRN PRN Reason: Anxiety Hyoscyamine (Hyoscyamine Subl 0.125 Mg Tab) 0.125 mg SL Q6HR PRN PRN Reason: abdominal cramping/diarrhea Dextrose/Sodium Chloride (D5/0.45ns) 1,000 mls @ 125 mls/hr IV DIRECT [facility] Last Admin: 07/13/20 09:24 Dose: 125 mls/hr Documented by: Ondansetron HCl (Ondansetron 4 Mg/2 Ml Inj) 4 mg IV Q8H PRN PRN Reason: Nausea And Vomiting Physical Examination - Physical Exam Narrative exam: Physical Exam (reviewed in chart to minimize risk of transmission) Constitutional: deferred Head, Ears, Nose: deferred Eyes: deferred Neck: deferred Oral: deferred Cardiovascular: deferred Respiratory: deferred GI: deferred Musculoskeletal: deferred Skin: deferred Hem/Lymphatic: deferred Psych: deferred Neurological: deferred - Constitutional Vitals: Vital Signs Temp Pulse Resp BP Pulse Ox 97.6 F 60 16 112/73 99 07/13/20 02:53 07/13/20 02:53 07/13/20 02:53 07/13/20 02:53 07/13/20 09:26 Temperature -Last 24 Hours Temperature 97.6 F Temperature 98.0 F Results - Labs CBC & Chem 7: 07/13/20 00:22 07/13/20 04:36 Labs: Abnormal lab results 07/13/20 07/13/20 Range/Units 00:22 04:36 Potassium 3.2 L 3.5 L (3.6-5.0) mmol/L Carbon Dioxide 20 L 18 L (22-30) mmol/L Glucose 101 H 136 H (65-100) mg/dL - Imaging and Cardiology Chest x-ray: report reviewed, image reviewed (no pneumonia) Assessment and Plan Cultures: SARS CoV2 PCR: Pending A/P: 25-year-old female with anxiety, panic attacks, asthma was admitted to the hospital with shortness of breath and throat discomfort: #COVID-19 PUI: Test is pending. No concerning findings on lab evaluation so far, inflammatory markers and procalcitonin are low. Chest x-ray without evidence of pneumonia. Recs: -Antibiotics not needed, low procalcitonin -Follow-up COVID-19 PCR Honey Doss MD, FACP [facility] O: [phone] F: [phone]
--- NOTE | 2020-07-13 14:37 | Consultation ---
History of Present Illness Consult date: 07/13/20 Reason for consult: dyspnea, other (Shortness of breath.) History of present illness: History of presenting illness, patient is a 25-year-old female who has been having intermittent shortness of breath with throat discomfort going on for almost a year. Patient was seen by me as pulmonary information technology consultant as out patient during last month for the shortness of breath and she had x-ray and CT angiogram of the chest . Angio CT of chest done at [facility] on 06/16/20 reported no pulmonary embolus,Reported subtle airspace disease in the right lower lobe. Patient treated with PO antibiotic Z CA. Chest xray done at the same time reported no acute findings. Patients D dimer 147. CBC obtained at the same time 06/16/20 was normal. ABGs obtained at the sme time suggestive of hyperventilation PH 7.5, PCO2 20, PO2 126, HCO3 15.6 on room air.Patients CMP and thyroid tests obtained are not remarkable. Total cholesterol 140, LDL 81, HDL 59. Patients RAST test re ported Patient allergic to mites. Told her clean her carpets and avoid exposure to Mites. Patient given mild medication for anxiety and recommend to continue follow with her psychiatrist. Ordered Pulmonary function test. Patient came to Emergency room at [facility] and got admitted. Patient COVID 19 Negative in the Past. Patient is testing for COVID again.Patient denies fever, chills, nausea, vomiting, diarrhea, chest pain or cough. Patient denies history of smoking, alcohol or drug abuse. Patient has no known drug allergies. Patient afebrile. No leukocytosis. Patients K+ 3.2. Supplemented K+ Patient also receiving Vistaril. Recommend to continue follow with her psychiatrist for her stress and anxiety. Past History Past Medical History: migraines (ASTHMA, PANIC ATTACKS), other (ANXIETY,) Past Surgical History: Other (LEEP SURGERY) Social history: no significant social history Family history: no significant family history Medications and Allergies Allergies Allergy/AdvReac Type Severity Reaction Status Date / Time No Known Allergies Allergy Verified 12/13/19 15:05 Home Medications Medication Instructions Recorded Confirmed Last Taken Type Butalb/Acetaminophen/Caffeine 1 cap PO Q8HR PRN #10 cap 12/13/19 07/13/20 Unknown Rx [Fioricet 50-300-40 mg CAP] Hyoscyamine Subl [Levsin Sl 0.125 0.125 mg SL Q6HR PRN #7 tab 12/13/19 07/13/20 Unknown Rx TAB] Ibuprofen [Motrin 800 MG tab] 800 mg PO Q8HR PRN #30 tablet 12/20/19 07/13/20 Unknown Rx Ondansetron [Zofran ODT TAB] 4 mg PO Q6HR PRN #15 tab.rapdis 12/20/19 07/13/20 Unknown Rx Albuterol Mdi (or & Nicu Only) 2 puff IH QID PRN #8.5 gram 05/07/20 07/13/20 Unknown Rx [ProAir HFA Inhaler] Hydrocortisone [Anucort-HC SUPPOS] 25 mg RC BID #10 supp.rect 05/07/20 07/13/20 Unknown Rx hydrOXYzine PAMOATE [Vistaril] 50 mg PO Q6HR PRN #10 capsule 05/07/20 07/13/20 Unknown Rx busPIRone [Buspar] 10 mg PO BID 07/13/20 07/13/20 Unknown History Active Meds: Active Medications Acetaminophen (Acetaminophen 325 Mg Tab) 650 mg PO Q4H PRN PRN Reason: Fever >101 Acetaminophen/Butalbital/Caffeine (Butalb/Acetaminophen/Caffeine Tab) 1 tab PO Q8H PRN PRN Reason: Headache Albuterol (Albuterol 2.5 Mg/3 Ml Nebu) 2.5 mg IH Q4HRT PRN PRN Reason: Shortness Of Breath Buspirone HCl (Buspirone 10 Mg Tab) 10 mg PO BID [facility] Last Admin: 07/13/20 09:23 Dose: 10 mg Documented by: Dexamethasone (Dexamethasone 4 Mg/Ml Vial) 6 mg IV DAILY [facility] Stop: 07/22/20 10:01 Last Admin: 07/13/20 09:23 Dose: 6 mg Documented by: Hydroxyzine Pamoate (Hydroxyzine Pamoate 50 Mg Cap) 50 mg PO Q6HR PRN PRN Reason: Anxiety Hyoscyamine (Hyoscyamine Subl 0.125 Mg Tab) 0.125 mg SL Q6HR PRN PRN Reason: abdominal cramping/diarrhea Dextrose/Sodium Chloride (D5/0.45ns) 1,000 mls @ 125 mls/hr IV DIRECT [facility] Last Admin: 07/13/20 09:24 Dose: 125 mls/hr Documented by: Ondansetron HCl (Ondansetron 4 Mg/2 Ml Inj) 4 mg IV Q8H PRN PRN Reason: Nausea And Vomiting Review of Systems All systems: negative Physical Examination Vital signs: Vital Signs Temp Pulse Resp BP Pulse Ox 98.0 F 79 18 118/70 100 07/12/20 22:12 07/12/20 22:12 07/12/20 22:12 07/12/20 22:12 07/12/20 22:12 General appearance: no acute distress, alert Eyes: non-icteric ENT: oropharynx moist Neck: supple, no JVD Effort: normal Ascultation: Bilateral: clear Cardiovascular: regular rate and rhythm Gastrointestinal: normoactive bowel sounds, soft, non-tender Integumentary: normal Extremities: no cyanosis, no edema Musculoskeletal: no deformities Gait: normal posture non-focal exam, pupils equal and round, CN II-XII normal anxious Results - Laboratory Findings CBC and BMP: 07/13/20 00:22 07/13/20 04:36 PT/INR, D-dimer PT 13.8 Sec. (12.2-14.9) 07/13/20 00:22 INR 1.07 (0.87-1.13) 07/13/20 00:22 D-Dimer 135.00 ng/mlDDU (0-234) 07/13/20 00:22 Abnormal lab findings: Abnormal Labs 07/13/20 07/13/20 00:22 04:36 Potassium 3.2 L 3.5 L Carbon Dioxide 20 L 18 L Glucose 101 H 136 H - Diagnostic Findings Chest x-ray: report reviewed, image reviewed Additional studies: CHEST 1 VIEW 07/12/2020 11:00 PM INDICATION / CLINICAL INFORMATION: Dyspnea, suspect covid. COMPARISON: 06/16/2020 FINDINGS: SUPPORT DEVICES: None. HEART / MEDIASTINUM: No significant abnormality. LUNGS / PLEURA: No significant pulmonary or pleural abnormality. No pneumothor ax. ADDITIONAL FINDINGS: No significant additional findings. IMPRESSION: 1. No acute findings. Assessment and Plan History of presenting illness, patient is a 25-year-old female who has been having intermittent shortness of breath with throat discomfort going on for almost a year. Patient was seen by me as pulmonary information technology consultant as out patient during last month for the shortness of breath and she had x-ray and CT angiogram of the chest . Angio CT of chest done at [facility] on 06/16/20 reported no pulmonary embolus,Reported subtle airspace disease in the right lower lobe. Patient treated with PO antibiotic Z CA. Chest xray done at the same time reported no acute findings. Patients D dimer 147. CBC obtained at the same time 06/16/20 was normal. ABGs obtained at the sme time suggestive of hyperventilation PH 7.5, PCO2 20, PO2 126, HCO3 15.6 on room air.Patients CMP and thyroid tests obtained are not remarkable. Total cholesterol 140, LDL 81, HDL 59. Patients RAST test reported Patient allergic to mites. Told her clean her carpets and avoid exposure to Mites. Patient given mild medication for anxiety and recommend to continue follow with her psychiatrist. Ordered Pulmonary function test. Patient came to Emergency room at [facility] and got admitted. Patient COVID 19 Negative in the Past. Patient is testing for COVID again.Patient denies fever, chills, nausea, vomiting, diarrhea, chest pain or cough. Patient denies history of smoking, alcohol or drug abuse. Patient has no known drug allergies. Patient afebrile. No leukocytosis. Patients K+ 3.2. Supplemented K+ Patient also receiving Vistaril. Recommend to continue follow with her psychiatrist for her stress and anxiety. - Patient Problems (1) Hyperventilation Current Visit: Yes Status: Acute Plan to address problem: Patients ABGs done 06/16/20 PH 7.5, PCO2 20, PO2 126, HCO3 15.6 on room air Recommend to repeat blood gases. (2) Shortness of breath Current Visit: Yes Status: Acute Plan to address problem: Likely from Hyperventilation. Patient scheduled for PFTs as OUT patient. (3) Hypokalemia Current Visit: Yes Status: Acute Plan to address problem: Supplements K+ (4) Suspected 2019 novel coronavirus infection Current Visit: Yes Status: Acute Plan to address problem: Brush virus PCR reported Negative.
[2020-07-13 17:52] VITALS: BP 108/68
[2020-07-14] MEDS: D5W/0.45% NACL 1,000 ML IV SCH (02:25)
[2020-07-14 05:26] LABS: Blood Urea Nitrogen 8 mg/dL (7-17); Calcium 8.1 mg/dL (8.4-10.2); Hemolysis Index 0
[2020-07-14 05:27] LABS: BUN/Creatinine Ratio 13
--- NOTE | 2020-07-14 08:43 | Discharge Summary ---
Providers - Providers Date of Admission: 07/13/20 01:38 Date of discharge: 07/14/20 Attending physician: JUANCHO MEHTA 07/12/20 23:31 Consult to Physician [CONS] Stat Comment: Consulting Provider: MERRILL SHULTZ Physician Instructions: Reason For Exam: covid, hypoxia 07/13/20 08:25 Consult to Physician [CONS] Routine Comment: Consulting Provider: ANGELA CARTER Physician Instructions: Reason For Exam: Chronic shortness of breath Primary care physician: ISAMAR COLLINS Hospitalization Condition: Good Hospital course: 25-year-old female with no significant medical history who has been having intermittent shortness of breath with throat discomfort going on for almost a year, patient was seen by the weight shifter within the first few days of the month of June for the same reason and she had x-ray and CT angiogram of the chest done that showed possible infiltrates on the right side. There was no his tory of fever or chills, patient said that this has been going on and has been investigated by different doctors and she is about to have pulmonary function test done. Patient admitted to having some throat discomfort from time to time, there is no history of dysphagia, nausea or vomiting. She recently was treated for PNA 1 week ago. In the ED, she was found to have hypokalemia and shortness of breath. Due rto concern for COVID-19 infection she was admitted. Plan to see weight shifter while here Her COVID-19 test was negative. She was seen by pulmonology and plan is to have PFTs performed in the office in a week. She is not hypoxic and remains in RA. She will be discharged home to follow up with her lung physician. Disposition: - TO HOME OR SELFCARE Time spent for discharge: 30 mins - Discharge Diagnoses (1) Hyperventilation Status: Acute (2) Hypokalemia Status: Acute (3) Shortness of breath Status: Acute (4) Suspected 2019 novel coronavirus infection Status: Acute Core Measure Documentation - Palliative Care Palliative Care/ Comfort Measures: Not Applicable - Core Measures Any of the following diagnoses?: none Exam - Physical Exam Narrative exam: VITAL SIGNS: Reviewed. GENERAL: Awake HEAD: No signs of head trauma. EYES: Pupils are equal. Extraocular motions intact. MOUTH: Oropharynx is normal. NECK: No adenopathy, no JVD. CHEST: Chest with diminished breath sounds bilaterally. No wheezes, rales, or rhonchi. CARDIAC: normal S1 and S2, without murmurs, gallops, or rubs. ABDOMEN: Soft, non tender and non distended. No rebound or guarding, and no masses palpated. Bowel Sounds normal. MUSCULOSKELETAL: No edema NEUROLOGIC EXAM: Alert and oriented x3. No focal neurologic deficits SKIN: No obvious lesions - Constitutional Vitals: Temp Pulse Resp BP Pulse Ox 98.1 F 66 18 108/68 100 07/13/20 16:23 07/13/20 20:00 07/13/20 20:00 07/13/20 16:23 07/13/20 20:00 Plan Activity: no restrictions Diet: regular Additional Instructions: Follow up with weight shifter in the office for PFTs Follow up with: ISAMAR COLLINS [Primary Care Provider] - 3-5 Days
[2020-07-14] MEDS: dexAMETHasone 4 MG/ML VIAL IV SCH (09:03)
[2020-07-14] MEDS: busPIRone 10 MG TAB PO SCH (09:04)
== END 2020-07-14 09:55 | disposition home or self-care (01) ==
LOC: ED 21:22 → 3A 07-13 01:38
PROVIDERS: ADMIT Internal Medicine; ATTEND Internal Medicine
DX: R06.02 Shortness of breath (principal); Z20.822 Contact with and (suspected) exposure to COVID-19; E87.6 Hypokalemia; J45.909 Unspecified asthma, uncomplicated; R09.02 Hypoxemia; G43.909 Migraine, unspecified, not intractable, without status migrainosus; F41.9 Anxiety disorder, unspecified; Z98.890 Other specified postprocedural states; Z79.899 Other long term (current) drug therapy; Z32.02 Encounter for pregnancy test, result negative
CPT/HCPCS: 36415; 71045; 80048; 80053; 82140; 82550; 82728; 83615; 83735; 84145; 84484; 84702; 85025; 85379; 85610; 86140; 93005; 94760; 96361; 96365; 96366; 96375; 96376; 99285; G0378; J1100; J3480; U0003

== ENCOUNTER 2020-07-17 21:29 | Emergency (ER) | payer BC ==
[2020-07-17] MEDS ORDERED: LORazepam 1 MG TAB PO ONE (23:23)
--- NOTE | 2020-07-17 23:40 | Emergency Department Report ---
ED General Adult HPI - General Chief complaint: Dyspnea/Respdistress Stated complaint: SOB Time Seen by Provider: 07/17/20 23:08 Source: patient Mode of arrival: Ambulatory Limitations: No Limitations - History of Present Illness Initial comments: 25-year-old -Marshallese female patient presents with complaints of recurrent shortness of breath starting today. Patient states she has had issues with hyperventilation for the past year and is currently following with a orthopaedic technologist and a psychiatrist. Patient recently placed on levofloxacin for s mall pneumonia-states compliance; she is currently on Wellbutrin for her anxiety. She is currently following with Dr. Vergara, psychiatry. She denies any SI/HI. She reports that this started over shortness of breath she believes she had a panic attack and now is unable to catch her breath since. No leg pain/swelling per patient. She denies any control use or history of DVT/PE, cough, hemoptysis, recent long travel/surgeries. Patient was recently discharged from this hospital for shortness of breath and hyperventilation. Patient also complains of throat pain and states her daughter was recently diagnosed with strep throat - Related Data Home Medications Medication Instructions Recorded Confirmed Last Taken busPIRone [Buspar] 10 mg PO BID 07/13/20 07/13/20 Unknown Previous Rx's Medication Instructions Recorded Last Taken Type Butalb/Acetaminophen/Caffeine 1 cap PO Q8HR PRN #10 cap 12/13/19 Unknown Rx [Fioricet 50-300-40 mg CAP] Hyoscyamine Subl [Levsin Sl 0.125 0.125 mg SL Q6HR PRN #7 tab 12/13/19 Unknown Rx TAB] Ibuprofen [Motrin 800 MG tab] 800 mg PO Q8HR PRN #30 tablet 12/20/19 Unknown Rx Ondansetron [Zofran ODT TAB] 4 mg PO Q6HR PRN #15 tab.rapdis 12/20/19 Unknown Rx Albuterol Mdi (or & Nicu Only) 2 puff IH QID PRN #8.5 gram 05/07/20 Unknown Rx [ProAir HFA Inhaler] Hydrocortisone [Anucort-HC SUPPOS] 25 mg RC BID #10 supp.rect 05/07/20 Unknown Rx hydrOXYzine PAMOATE [Vistaril] 50 mg PO Q6HR PRN #10 capsule 05/07/20 Unknown Rx clonazePAM [Klonopin] 1 mg PO QDAY PRN #5 tablet 07/18/20 Unknown Rx Allergies Allergy/AdvReac Type Severity Reaction Status Date / Time No Known Allergies Allergy Verified 12/13/19 15:05 ED Review of Systems ROS: Stated complaint: SOB Other details as noted in HPI Constitutional: denies: diaphoresis, fever, malaise, weakness ENT: denies: throat pain Respiratory: denies: cough Cardiovascular: denies: chest pain Gastrointestinal: denies: abdominal pain, nausea, vomiting Musculoskeletal: denies: arthralgia Skin: denies: change in color ED Past Medical Hx - Past Medical History Previous Medical History?: Yes Hx Hypertension: No Hx Heart Attack/AMI: No Hx Congestive Heart Failure: No Hx Diabetes: No Hx Deep Vein Thrombosis: No Hx GERD: No Hx Liver Disease: No Hx Renal Disease: No Hx Sickle Cell Disease: No Hx Arthritis: No Hx Headaches / Migraines: Yes (Migraines) Hx Seizures: No Hx Kidney Stones: No Hx Psychiatric Treatment: Yes (anxiety) Hx Asthma: Yes Hx COPD: No Hx Dementia: No Hx HIV: No Additional medical history: Panic attacks. Hyperventilation. Pneu - Surgical History Past Surgical History?: Yes Hx Coronary Stent: No Hx Pacemaker: No Hx Internal Defibrillator: No Additional Surgical History: LEEP - Social History Smoking Status: Never Smoker Substance Use Type: Alcohol - Medications Home Medications: Home Medications Medication Instructions Recorded Confirmed Last Taken Type Butalb/Acetaminophen/Caffeine 1 cap PO Q8HR PRN #10 cap 12/13/19 07/13/20 Unknown Rx [Fioricet 50-300-40 mg CAP] Hyoscyamine Subl [Levsin Sl 0.125 0.125 mg SL Q6HR PRN #7 tab 12/13/19 07/13/20 Unknown Rx TAB] Ibuprofen [Motrin 800 MG tab] 800 mg PO Q8HR PRN #30 tablet 12/20/19 07/13/20 Unknown Rx Ondansetron [Zofran ODT TAB] 4 mg PO Q6HR PRN #15 tab.rapdis 12/20/19 07/13/20 Unknown Rx Albuterol Mdi (or & Nicu Only) 2 puff IH QID PRN #8.5 gram 05/07/20 07/13/20 Unknown Rx [ProAir HFA Inhaler] Hydrocortisone [Anucort-HC SUPPOS] 25 mg RC BID #10 supp.rect 05/07/20 07/13/20 Unknown Rx hydrOXYzine PAMOATE [Vistaril] 50 mg PO Q6HR PRN #10 capsule 05/07/20 07/13/20 Unknown Rx busPIRone [Buspar] 10 mg PO BID 07/13/20 07/13/20 Unknown History clonazePAM [Klonopin] 1 mg PO QDAY PRN #5 tablet 07/18/20 Unknown Rx ED Physical Exam - General Limitations: No Limitations General appearance: alert, other (Active hyperventilation noted) - Head Head exam: Present: atraumatic, normocephalic - Eye Eye exam: Absent: scleral icterus - ENT ENT exam: Present: normal exam, normal orophraynx - Expanded ENT Exam Expanded Mouth exam: Absent: drooling, trismus, muffled voice - Neck Neck exam: Present: normal inspection, full ROM. Absent: lymphadenopathy - Respiratory Respiratory exam: Present: normal lung sounds bilaterally. Absent: respiratory distress - Cardiovascular Cardiovascular Exam: Present: regular rate, normal rhythm. Absent: systolic murmur, diastolic murmur, rubs, gallop - GI/Abdominal GI/Abdominal exam: Present: soft. Absent: tenderness - Extremities Exam Extremities exam: Present: full ROM. Absent: calf tenderness (No swelling or pain noted bilaterally to leg) - Back Exam Back exam: Present: full ROM. Absent: tenderness - Neurological Exam Neurological exam: Present: alert, oriented X3, normal gait - Psychiatric Psychiatric exam: Present: normal affect, normal mood ED Course Vital Signs 07/17/20 07/18/20 23:07 01:46 Temperature 98.1 F Pulse Rate 82 78 Respiratory 18 16 Rate Blood Pressure 113/59 Blood Pressure 110/84 [Left] O2 Sat by Pulse 100 100 Oximetry ED Medical Decision Making - Medical Decision Making 25-year-old -M[place] female patient presents with complaints of recurrent shortness of breath starting today. Patient states she has had issues with hyperventilation for the past year and is currently following with a orthopaedic technologist and a psychiatrist. Patient recently placed on levofloxacin for small pneumonia-states compliance; she is currently on Wellbutrin for her anxiety. She is currently following with Dr. Vergara, psychiatry. She denies any SI/HI. She reports that this started over shortness of breath she believes she had a panic attack and now is unable to catch her breath since. No leg pain/swelling per patient. She denies any control use or history of DVT/PE, cough, hemoptysis, recent long travel/surgeries. Patient was recently discharged from this hospital for shortness of breath and hyperventilation. Patient also complains of throat pain and states her daughter was recently diagnosed with strep throat Exam of oropharynx is normal. Rapid strep is negative. Patient given Ativan 1 mg and hyperventilation has significantly improved. Patient states she is feeling a great deal better. Discussed in great length importance of follow-up with her psychiatrist for further management of her anxiety. Patient states she has an appointment with her psychiatrist and her orthopaedic technologist in a few days. Her vitals are normal, she is well-appearing, she is stable for discharge home. Strict return precautions were discussed in great detail with patient who states understanding Critical care attestation.: If time is entered above; I have spent that time in minutes in the direct care of this critically ill patient, excluding procedure time. ED Disposition Clinical Impression: Anxiety, Hyperventilation Disposition: DC-01 TO HOME OR SELFCARE Is pt being admited?: No Condition: Stable Instructions: Hyperventilation, Managing Anxiety, Adult Additional Instructions: Please follow up with your psychiatrist and orthopaedic technologist as scheduled next week Prescriptions: clonazePAM [Klonopin] 1 mg PO QDAY PRN #5 tablet PRN Reason: Anxiety Referrals: MEREDITH LYONS MD [Primary Care Provider] - 3-5 Days
[2020-07-18 01:47] VITALS: BP 110/84
== END 2020-07-18 01:47 | disposition home or self-care (01) ==
LOC: ED 21:29
DX: R06.4 Hyperventilation (principal); F41.9 Anxiety disorder, unspecified; G43.909 Migraine, unspecified, not intractable, without status migrainosus; Z79.1 Long term (current) use of non-steroidal anti-inflammatories (NSAID); Z79.899 Other long term (current) drug therapy
CPT/HCPCS: 87116; 87430

== ENCOUNTER 2020-10-09 18:19 | Emergency (ER) | payer BC | END 2020-10-10 01:35 | disposition left against medical advice (07) | LOC: ED 18:19 ==

== ENCOUNTER 2021-07-07 10:09 | Emergency (ER) | payer SELFPAY ==
--- NOTE | 2021-07-07 12:52 | Event Note ---
ED Screening Note ED Screening Note: does not known when lmp was co rlq took home preg test it was pos no vag bleed denies d/c [id number] This initial assessment/diagnostic orders/clinical plan/treatment(s) is/are subject to change based on patients health status, clinical progression and re- assessment by fellow clinical providers in the ED. Further treatment and workup at subsequent clinical providers discretion. Patient/guardian urged not to elope from the ED as their condition may be serious if not clinically assessed and managed. Initial orders include: ro ectopic
[2021-07-07 12:58] LABS: Basophils # (Auto) 0.1 K/mm3 (0.0-0.1); Basophils % (Auto) 0.9 % (0.0-1.8); Eosinophils % (Auto) 0.1 % (0.0-4.3); Hematocrit 36.9 % (30.3-42.9); Hemoglobin 12.4 gm/dl (10.1-14.3); Lymphocytes # (Auto) 0.7 K/mm3 (1.2-5.4); Lymphocytes % (Auto) 7.1 % (13.4-35.0); Mean Corpuscular HGB Conc 34 % (30-34); Mean Corpuscular Volume 87 fl (79-97); Monocytes # (Auto) 0.4 K/mm3 (0.0-0.8); Platelet Count 307 K/mm3 (140-440); Red Blood Count 4.25 M/mm3 (3.65-5.03); Red Cell Distribution Width 14.3 % (13.2-15.2)
[2021-07-07 13:18] LABS: Blood Urea Nitrogen 17 mg/dL (7-17); Hemolysis Index 8
[2021-07-07 13:22] LABS: BUN/Creatinine Ratio 34
--- NOTE | 2021-07-07 13:27 | Ultrasound Report ---
FIRSTTRIMESTER OBSTETRIC ULTRASOUND HISTORY: Right lower quadrant pain during COMPARISON: None. TECHNIQUE: Routine transabdominal and transvaginal OB ultrasound performed. FINDINGS: The uterus is anteverted and measures 7.8 x 4.6 x 6.4 cm. The endometrial stripe measures 1.1 cm. No intrauterine gestational sac is identified. The right ovary measures 2.1 x 2.6 x 4.2 cm. There is a complex partially cystic masslike lesion in t he right adnexa measuring up to 2.9 cm. There is a small cystic area within which resembles a gestati onal sac measuring 5 mm. If this is a gestational sac it correlates with a 5 week 2 day . No clear pole, yolk sac or heart rate is demonstrated. The left ovary measures 2.5 x 2.0 x 3.0 cm. There is moderate free pelvic fluid. IMPRESSION Findings highly suggestive of an ectopic on the right side as described. CRITICAL RESULT: Time of Discovery (CASE MANAGEMENT MANAGER/CDT): 1212 hours Time of Communication (CASE MANAGEMENT MANAGER/CDT): 1215 hours Licensed Practitioner Receiving Report: Dr. Medrano Read-Back Performed: Yes. Signer Name: Neto Dunlap Wilsonfanta Page MD Signed: 07/07/2021 1:16 PM Workstation Name: [id number]
--- NOTE | 2021-07-07 13:27 | Ultrasound Report ---
FIRSTTRIMESTER OBSTETRIC ULTRASOUND HISTORY: Right lower quadrant pain during COMPARISON: None. TECHNIQUE: Routine transabdominal and transvaginal OB ultrasound performed. FINDINGS: The uterus is anteverted and measures 7.8 x 4.6 x 6.4 cm. The endometrial stripe measures 1.1 cm. No intrauterine gestational sac is identified. The right ovary measures 2.1 x 2.6 x 4.2 cm. There is a complex partially cystic masslike lesion in t he right adnexa measuring up to 2.9 cm. There is a small cystic area within which resembles a gestati onal sac measuring 5 mm. If this is a gestational sac it correlates with a 5 week 2 day . No clear pole, yolk sac or heart rate is demonstrated. The left ovary measures 2.5 x 2.0 x 3.0 cm. There is moderate free pelvic fluid. IMPRESSION Findings highly suggestive of an ectopic on the right side as described. CRITICAL RESULT: Time of Discovery (PLANNER INTERN/CDT): 1212 hours Time of Communication (PLANNER INTERN/CDT): 1215 hours Licensed Practitioner Receiving Report: Dr. Medrano Read-Back Performed: Yes. Signer Name: Neto Dunlap Wilsonfanta Page MD Signed: 07/07/2021 1:16 PM Workstation Name: [id number]
--- NOTE | 2021-07-07 13:35 | Emergency Department Report ---
ED Abdominal Pain HPI - General Chief Complaint: Abdominal Pain Stated Complaint: ABD PAIN Time Seen by Provider: 07/07/21 11:55 Source: patient Mode of arrival: Ambulatory Limitations: No Limitations - History of Present Illness Initial Comments: 26-year-old female with a past medical history asthma presents to the hospital planing of right lower quadrant pain since this a.m. Right lower quadrant pain was gradual onset and then worsened in intensity. Describes moderate to severe, constant, worse with palpation, movement, ambulation. Patient denies nausea, or vomiting. Patient reports a late menstrual cycle with recent vaginal spotting. LMP 05/28/2021 with a positive home yesterday. This is her fifth with history of 2 living children 2 medical abortions. Her OPTIMIZATION CONSULTANT doctor is affiliated with [facility] with most recent visit 1 year ago for Pap smear Severity scale (0 -10): 10 - Related Data Home Medications Medication Instructions Recorded Confirmed Last Taken busPIRone [Buspar] 10 mg PO BID 07/13/20 07/13/20 Unknown Previous Rx's Medication Instructions Recorded Last Taken Type Butalb/Acetaminophen/Caffeine 1 cap PO Q8HR PRN #10 cap 12/13/19 Unknown Rx [Fioricet 50-300-40 mg CAP] Hyoscyamine Subl [Levsin Sl 0.125 0.125 mg SL Q6HR PRN #7 tab 12/13/19 Unknown Rx TAB] Ibuprofen [Motrin 800 MG tab] 800 mg PO Q8HR PRN #30 tablet 12/20/19 Unknown Rx Ondansetron [Zofran ODT TAB] 4 mg PO Q6HR PRN #15 tab.rapdis 12/20/19 Unknown Rx Albuterol Mdi (or & Nicu Only) 2 puff IH QID PRN #8.5 gram 05/07/20 Unknown Rx [ProAir HFA Inhaler] Hydrocortisone [Anucort-HC SUPPOS] 25 mg RC BID #10 supp.rect 05/07/20 Unknown Rx hydrOXYzine PAMOATE [Vistaril] 50 mg PO Q6HR PRN #10 capsule 05/07/20 Unknown Rx clonazePAM [Klonopin] 1 mg PO QDAY PRN #5 tablet 07/18/20 Unknown Rx HYDROcodone/APAP 5-325 [Reserve 1 each PO Q6HR PRN #14 tablet 07/07/21 Unknown Rx 5/325] Ibuprofen [Motrin] 600 mg PO Q8H PRN #20 tablet 07/07/21 Unknown Rx Allergies Allergy/AdvReac Type Severity Reaction Status Date / Time No Known Allergies Allergy Verified 12/13/19 15:05 ED Review of Systems ROS: Stated complaint: ABD PAIN Other details as noted in HPI Comment: All other systems reviewed and negative ED Past Medical Hx - Past Medical History Hx Hypertension: No Hx Heart Attack/AMI: No Hx Congestive Heart Failure: No Hx Diabetes: No Hx Deep Vein Thrombosis: No Hx GERD: No Hx Liver Disease: No Hx Renal Disease: No Hx Sickle Cell Disease: No Hx Arthritis: No Hx Headaches / Migraines: Yes (Migraines) Hx Seizures: No Hx Kidney Stones: No Hx Psychiatric Treatment: Yes (anxiety) Hx Asthma: Yes Hx COPD: No Hx Dementia: No Hx HIV: No Additional medical history: Panic attacks. Hyperventilation. Pneu - Surgical History Hx Coronary Stent: No Hx Pacemaker: No Hx Internal Defibrillator: No Additional Surgical History: LEEP - Social History Smoking Status: Never Smoker Substance Use Type: Alcohol - Medications Home Medications: Home Medications Medication Instructions Recorded Confirmed Last Taken Type Butalb/Acetaminophen/Caffeine 1 cap PO Q8HR PRN #10 cap 12/13/19 07/13/20 Unknown Rx [Fioricet 50-300-40 mg CAP] Hyoscyamine Subl [Levsin Sl 0.125 0.125 mg SL Q6HR PRN #7 tab 12/13/19 07/13/20 Unknown Rx TAB] Ibuprofen [Motrin 800 MG tab] 800 mg PO Q8HR PRN #30 tablet 12/20/19 07/13/20 Unknown Rx Ondansetron [Zofran ODT TAB] 4 mg PO Q6HR PRN #15 tab.rapdis 12/20/19 07/13/20 Unknown Rx Albuterol Mdi (or & Nicu Only) 2 puff IH QID PRN #8.5 gram 05/07/20 07/13/20 Unknown Rx [ProAir HFA Inhaler] Hydrocortisone [Anucort-HC SUPPOS] 25 mg RC BID #10 supp.rect 05/07/20 07/13/20 Unknown Rx hydrOXYzine PAMOATE [Vistaril] 50 mg PO Q6HR PRN #10 capsule 05/07/20 07/13/20 Unknown Rx busPIRone [Buspar] 10 mg PO BID 07/13/20 07/13/20 Unknown History clonazePAM [Klonopin] 1 mg PO QDAY PRN #5 tablet 07/18/20 Unknown Rx HYDROcodone/APAP 5-325 [Reserve 1 each PO Q6HR PRN #14 tablet 07/07/21 Unknown Rx 5/325] Ibuprofen [Motrin] 600 mg PO Q8H PRN #20 tablet 07/07/21 Unknown Rx ED Physical Exam - General Limitations: No Limitations - Other Other exam information: General: No acute distress Head: Atraumatic Eyes: normal appearance ENT: Moist mucous membranes Neck: Normal appearance, no midline tenderness Chest: Clear to auscultation bilaterally CV: Regular rate and rhythm Abdomen: Soft, normal bowel sounds, right lower quadrant tenderness Back: Normal inspection Extremity: Normal inspection, full range of motion Neuro: Alert O x 3, no facial asymmetry, speech clear, no gross motor sensory deficit Psych: Appropriate behavior Skin: No rash ED Course Vital Signs 07/07/21 11:44 Temperature 98.4 F Pulse Rate 99 H Respiratory 18 Rate Blood Pressure 128/75 [Right] O2 Sat by Pulse 99 Oximetry - Consultations Consultation #1: 07/07/21 13:[address] Rolon will affect OPTIMIZATION CONSULTANT advises methotrexate, follow- up in the office on Monday. Advises that pain should worsen in the first 24 hours. Recommend narcotic prescription for pain relief ED Medical Decision Making - Lab Data Result diagrams: 07/07/21 12:05 07/07/21 12:05 Lab Results 07/07/21 07/07/21 07/07/21 Range/Units 12:05 12:05 12:05 WBC 10.0 (4.5-11.0) K/mm3 RBC 4.25 (3.65-5.03) M/mm3 Hgb 12.4 (10.1-14.3) gm/dl Hct 36.9 (30.3-42.9) % MCV 87 (79-97) fl MCH 29 (28-32) pg MCHC 34 (30-34) % RDW 14.3 (13.2-15.2) % Plt Count 307 (140-440) K/mm3 Lymph % (Auto) 7.1 L (13.4-35.0) % Barnes % (Auto) 4.0 (0.0-7.3) % Eos % (Auto) 0.1 (0.0-4.3) % Baso % (Auto) 0.9 (0.0-1.8) % Lymph # (Auto) 0.7 L (1.2-5.4) K/mm3 Barnes # (Auto) 0.4 (0.0-0.8) K/mm3 Eos # (Auto) 0.0 (0.0-0.4) K/mm3 Baso # (Auto) 0.1 (0.0-0.1) K/mm3 Seg Neutrophils % 87.9 H (40.0-70.0) % Seg Neutrophils # 8.8 H (1.8-7.7) K/mm3 Sodium 136 L (137-145) mmol/L Potassium 4.2 (3.6-5.0) mmol/L Chloride 102.4 (98-107) mmol/L Carbon Dioxide 20 L (22-30) mmol/L Anion Gap 18 mmol/L BUN 17 (7-17) mg/dL Creatinine 0.5 L (0.6-1.2) mg/dL Estimated GFR > 60 ml/min BUN/Creatinine Ratio 34 % Glucose 119 H (65-100) mg/dL Calcium 9.0 (8.4-10.2) mg/dL HCG, Qual Positive (Negative) HCG, Quant (0-4) mIU/mL Blood Type Antibody Screen Ord Rhogam Gestat Weeks WEEKS 07/07/21 07/07/21 07/07/21 Range/Units 12:05 12:05 13:25 WBC (4.5-11.0) K/mm3 RBC (3.65-5.03) M/mm3 Hgb (10.1-14.3) gm/dl Hct (30.3-42.9) % MCV (79-97) fl MCH (28-32) pg MCHC (30-34) % RDW (13.2-15.2) % Plt Count (140-440) K/mm3 Lymph % (Auto) (13.4-35.0) % Barnes % (Auto) (0.0-7.3) % Eos % (Auto) (0.0-4.3) % Baso % (Auto) (0.0-1.8) % Lymph # (Auto) (1.2-5.4) K/mm3 Barnes # (Auto) (0.0-0.8) K/mm3 Eos # (Auto) (0.0-0.4) K/mm3 Baso # (Auto) (0.0-0.1) K/mm3 Seg Neutrophils % (40.0-70.0) % Seg Neutrophils # (1.8-7.7) K/mm3 Sodium (137-145) mmol/L Potassium (3.6-5.0) mmol/L Chloride (98-107) mmol/L Carbon Dioxide (22-30) mmol/L Anion Gap mmol/L BUN (7-17) mg/dL Creatinine (0.6-1.2) mg/dL Estimated GFR ml/min BUN/Creatinine Ratio % Glucose (65-100) mg/dL Calcium (8.4-10.2) mg/dL HCG, Qual (Negative) HCG, Quant 2254 H (0-4) mIU/mL Blood Type O POSITIVE O POSITIVE Antibody Screen Negative Ord Rhogam Gestat Weeks Rh pos WEEKS - Radiology Data Radiology results: report reviewed FIRSTTRIMESTER OBSTETRIC ULTRASOUND HISTORY: Right lower quadrant pain during COMPARISON: None. TECHNIQUE: Routine transabdominal and transvaginal OB ultrasound performed. FINDINGS: The uterus is anteverted and measures 7.8 x 4.6 x 6.4 cm. The endometrial stripe measures 1.1 cm. No intrauterine gestational sac is identified. The right ovary measures 2.1 x 2.6 x 4.2 cm. There is a complex partially cystic masslike lesion in the right adnexa measuring up to 2.9 cm. There is a small cystic area within which resembles a gestational sac measuring 5 mm. If this is a gestational sac it correlates with a 5 week 2 day . No clear pole, yolk sac or heart rate is demonstrated. The left ovary measures 2.5 x 2.0 x 3.0 cm. There is moderate free pelvic fluid. IMPRESSION Findings highly suggestive of an ectopic on the right side as described. - Medical Decision Making 26-year-old female with likely right-sided ectopic. Patient received methotrexate after discussion with OPTIMIZATION CONSULTANT. Patient instructed to follow-up on Monday at [address] Rolon. Patient was informed that she would be to go to the office at 9 AM on Monday for blood testing and may be seen by [address] Rolon's partners. At time of discharge patient does not endorse any significant pain and vital signs stable Critical Care Time: No Critical care attestation.: If time is entered above; I have spent that time in minutes in the direct care of this critically ill patient, excluding procedure time. ED Disposition Clinical Impression: Ectopic of right ovary Disposition: HOME / SELF CARE / HOMELESS Is pt being admited?: No Does the pt Need Aspirin: No Condition: Stable Instructions: Abdominal Pain (ED), Ectopic , Methotrexate Treatment for an Ectopic Additional Instructions: Take the medication as prescribed. It is very important you follow-up with [facility] doctor on Monday on the . Please return if symptoms worsen as indicated by your discharge instructions. Prescriptions: Ibuprofen [Motrin] 600 mg PO Q8H PRN #20 tablet PRN Reason: Pain HYDROcodone/APAP 5-325 [Reserve 5/325] 1 each PO Q6HR PRN #14 tablet PRN Reason: Pain Referrals: FREDA ROLON MD [Staff Physician] - 07/09/21 Time of Disposition: 18:12
[2021-07-07] MEDS ORDERED: ONDANSETRON 4 MG/2 ML INJ IV ONE (13:40)
[2021-07-07] MEDS ORDERED: MORPHINE 4 MG/1 ML INJ IV ONE (13:40)
[2021-07-07 18:14] VITALS: BP 108/74
== END 2021-07-07 18:42 | disposition home or self-care (01) ==
LOC: ED 10:09
DX: O00.90 Unspecified ectopic pregnancy without intrauterine pregnancy (principal); Z3A.00 Weeks of gestation of pregnancy not specified
CPT/HCPCS: 36415; 76801; 76817; 80048; 84702; 84703; 85025; 86850; 86900; 86901; 96372; 96374; 96375; 99284; J2270; J2405; J9260